=== PATIENT | female | born 1985 | race Caucasian/White ===

== ENCOUNTER 2016-07-21 13:04 | Emergency (ER) | payer OTHER ==
[2016-07-21] MEDS ORDERED: HYDROcodone/APAP 5-325MG 1 EACH TAB PO STA (13:51)
--- NOTE | 2016-07-21 13:57 | ED ---
ENT HPI - General Chief complaint: Dental/Oral Stated complaint: Dental pain Time Seen by Provider: 07/21/16 13:30 Source: patient Mode of arrival: ambulatory Limitations: no limitations - History of Present Illness Initial comments: Patient is a 31-year-old white female presenting to the emergency department with complaints of toothache to her upper right molar with pain radiating into her upper and lower jaw. Patient states she has a history of a broken tooth but over the last 2 days she started having significant pain unrelieved with tramadol and Motrin. Patient currently rates pain 8 out of 10, described as "somebody poking me with a knife." Patient states she just received insurance and is planning to see Dr. Cortes as her new dentist. Patient complains of occasional chills and nausea without vomiting. Patient denies fevers, trismus, difficulty swallowing, shortness of breath, chest pain, or abdominal pain. Patient denies any other symptoms. Patient denies antibiotic use in last 30 days. MD complaint: tooth pain Onset/Timin -: days(s) Location: tooth # (2) Severity: severe Severity scale (1-10): 8 Quality: sharp, other (Feels like somebody is poking her with a knife) Consistency: constant Improves with: none Worsens with: none Context- Dental: poor dental care, other (Missing teeth, poor dental hygiene) Associated Symptoms: gum swelling - Related Data Home Medications Medication Instructions Recorded Confirmed Gabapentin [Neurontin] 100 mg PO HS 07/21/16 07/21/16 Ibuprofen [Motrin] 600 mg PO Q6HR PRN 07/21/16 07/21/16 traMADol HCL [Ultram] 50 mg PO Q6HR PRN 07/21/16 07/21/16 Previous Rx's Medication Instructions Recorded HYDROcodone/APAP 5-325MG [[place] 1 tab PO Q4HR PRN #12 tab 07/21/16 5-325] Penicillin V Potassium [Pen Vee K] 500 mg PO QID #28 tab 07/21/16 Allergies Allergy/AdvReac Type Severity Reaction Status Date / Time No Known Allergies Allergy Verified 07/21/16 13:55 Review of Systems ROS Statement: Those systems with pertinent positive or pertinent negative responses have been documented in the HPI. ROS Other: All systems not noted in ROS Statement are negative. Past Medical History Past Medical History: Asthma, GERD/Reflux Additional Past Medical History / Comment(s): HERNIATED DISCS, BACK PAIN, POLYCYSTIC OVARY SYNDROME, MIGRAINES History of Any Multi-Drug Resistant Organisms: None Reported Past Surgical History: No Surgical Hx Reported Additional Past Surgical History / Comment(s): COLD KNIFE CONIZATION, [facility] Past Anesthesia/Blood Transfusion Reactions: Motion Sickness Additional Past Anesthesia/Blood Transfusion Reaction / Comment(s): HAS NEVER RECEIVED ANESTHESIA. Past Psychological History: Anxiety, Depression Smoking Status: Never smoker Past Alcohol Use History: None Reported Past Drug Use History: None Reported - Past Family History Father Family Medical History: Unable to Obtain Additional Family Medical History / Comment(s): PT WAS ADOPTED Mother Family Medical History: Unable to Obtain Additional Family Medical History / Comment(s): ADOPTED General Exam Limitations: no limitations General appearance: alert, anxious, other Head exam: Present: atraumatic, normocephalic, normal inspection Eye exam: Present: normal appearance, PERRL. Absent: scleral icterus, conjunctival injection, nystagmus, periorbital swelling, periorbital tenderness ENT exam: Present: mucous membranes moist, TM's normal bilaterally, normal external ear exam Expanded Ear exam: Present: normal external inspection Mouth exam: Present: normal external inspection, tongue normal. Absent: drooling, trismus Teeth exam: Present: fractured tooth # (2), dental tenderness # (2), gingival enlargement Throat exam: normal inspection. negative: tonsillar erythema, tonsillomegaly, tonsillar exudate, R peritonsillar mass, L peritonsillar mass Neck exam: Present: normal inspection, full ROM. Absent: tenderness, lymphadenopathy Respiratory exam: Present: normal lung sounds bilaterally. Absent: respiratory distress, wheezes, rales, rhonchi, stridor Cardiovascular Exam: Present: regular rate, normal rhythm, normal heart sounds GI/Abdominal exam: Present: soft, normal bowel sounds. Absent: tenderness Extremities exam: Present: normal inspection, full ROM, normal capillary refill. Absent: tenderness Neurological exam: Present: alert, oriented X3, normal gait, other (No focal deficits noted) Psychiatric exam: Present: normal affect, normal mood Skin exam: Present: warm, dry, intact, normal color Course Vital Signs 07/21/16 13:19 Temperature 98.0 F Pulse Rate 70 Respiratory 20 Rate Blood Pressure 129/82 O2 Sat by Pulse 99 Oximetry Medical Decision Making - Medical Decision Making Dental pain to tooth #2 with adjacent erythema. No obvious abscess noted. Patient prescribed antibiotics and short course opiates. Patient instructed to follow-up with dentist for further treatment. Patient agrees with treatment plan. Discharge instructions and return parameters reviewed. Disposition Clinical Impression: Toothache, Fracture of tooth Disposition: HOME SELF-CARE Condition: Good Instructions: Toothache (ED) Additional Instructions: Finish antibiotic as prescribed. Continue Motrin and Vicodin for pain as needed. Apply warm compresses for comfort. Follow-up with dentist. Please return to the emergency department if symptoms do not improve or get worse. Prescriptions: HYDROcodone/APAP 5-325MG [[place] 5-325] 1 tab PO Q4HR PRN #12 tab PRN Reason: Pain Penicillin V Potassium [Pen Vee K] 500 mg PO QID #28 tab Referrals: Moreno Contreras III, MD [Primary Care Provider] - 1-2 days Time of Disposition: 13:56
[2016-07-21 15:34] VITALS: BP 229/89; PULSE 63; RESP 15; TEMP 97.6
== END 2016-07-21 15:35 | disposition home or self-care (01) ==
LOC: EC 13:04
DX: S02.5XXA Fracture of tooth (traumatic), initial encounter for closed fracture (principal); R11.0 Nausea; R68.83 Chills (without fever); Z79.899 Other long term (current) drug therapy
CPT/HCPCS: 99282

== ENCOUNTER 2016-08-03 14:09 | Emergency (ER) | payer OTHER ==
[2016-08-03] MEDS ORDERED: SODIUM CHLORIDE 0.9% 1,000 ML IV STA (14:25)
--- NOTE | 2016-08-03 14:27 | ED ---
Abdominal Pain HPI - General Chief Complaint: Abdominal Pain Stated Complaint: Abd Pain Time Seen by Provider: 08/03/16 14:21 Source: patient, RN notes reviewed Mode of arrival: ambulatory Limitations: no limitations - History of Present Illness Initial Comments: 31-year-old female presents to the emergency room chief complaint of right upper quadrant abdominal pain. Patient states that wraps around her whole upper quadrant into the rib cage. Patient states that he'll shoot up the back. The chest. Patient states there is no shortness of breath with it. Patient states she's had off-and-on for the last few weeks but worse today. Patient states stabbing type pain. Patient denies any nausea vomiting fever or chills with it. Patient had a cough cold runny nose. Patient states that she does not know stimulation. Patient states she was concerned due to the continued pain so she thought that she should be reevaluated. Patient denies any recent fever, chills, shortness of breath, chest pain, back pain,nausea vomiting, numbness or tingling, dysuria or hematuria, constipation or diarrhea, headaches or visual changes, or any other current symptoms. - Related Data Home Medications Medication Instructions Recorded Confirmed Albuterol Sulfate [Proair Hfa] 2 puff INHALATION RT-QID PRN 08/03/16 08/03/16 Multivitamins, Thera [Multivitamin 1 tab PO DAILY 08/03/16 08/03/16 (formulary)] Previous Rx's Medication Instructions Recorded HYDROcodone/APAP 5-325MG [[place] 1 tab PO Q4HR PRN #12 tab 07/21/16 5-325] Allergies Allergy/AdvReac Type Severity Reaction Status Date / Time No Known Allergies Allergy Verified 08/03/16 15:00 Review of Systems ROS Statement: Those systems with pertinent positive or pertinent negative responses have been documented in the HPI. ROS Other: All systems not noted in ROS Statement are negative. Past Medical History Past Medical History: Asthma, GERD/Reflux Additional Past Medical History / Comment(s): HERNIATED DISCS, BACK PAIN, POLYCYSTIC OVARY SYNDROME, MIGRAINES History of Any Multi-Drug Resistant Organisms: None Reported Past Surgical History: No Surgical Hx Reported Additional Past Surgical History / Comment(s): COLD KNIFE CONIZATION, [facility] Past Anesthesia/Blood Transfusion Reactions: Motion Sickness Additional Past Anesthesia/Blood Transfusion Reaction / Comment(s): HAS NEVER RECEIVED ANESTHESIA. Past Psychological History: Anxiety, Depression Smoking Status: Never smoker Past Alcohol Use History: None Reported Past Drug Use History: None Reported - Past Family History Father Family Medical History: Unable to Obtain Additional Family Medical History / Comment(s): PT WAS ADOPTED Mother Family Medical History: Unable to Obtain Additional Family Medical History / Comment(s): ADOPTED General Exam - General Exam Comments Initial Comments: General: The patient is awake and alert, in no distress, and does not appear acutely ill. Eye: Pupils are equal, round and reactive to light, extra-ocular movements are intact; there is normal conjunctiva bilaterally. No signs of icterus. Ears, nose, mouth and throat: There are moist mucous membranes and no oral lesions. Neck: The neck is supple, there is no tenderness. Cardiovascular: There is a regular rate and rhythm. No murmur, rub or gallop is appreciated. Respiratory: Lungs are clear to auscultation, respirations are non-labored, breath sounds are equal. No wheezes, stridor, rales, or rhonchi. Gastrointestinal: Soft, non-distended, right upper quadrant tenderness of the abdomen without masses or organomegaly noted. There is no rebound or guarding present. No CVA tenderness. Bowel sounds are unremarkable. Back: There is no tenderness to palpation in the midline. There is no obvious deformity. No rashes noted. Musculoskeletal: Normal ROM, no tenderness, There is no pedal edema. There is no calf tenderness or swelling. Sensation intact. Pulses equal bilaterally 2+. Neurological: CN II-XII intact, There are no obvious motor or sensory deficits. Coordination appears grossly intact. Speech is normal. Skin: Skin is warm and dry and no rashes or lesions are noted. Psychiatric: Cooperative, appropriate mood & affect, normal judgment. Limitations: no limitations Course Vital Signs 08/03/16 14:16 Temperature 97.8 F Pulse Rate 101 H Respiratory 18 Rate Blood Pressure 136/78 O2 Sat by Pulse 100 Oximetry Medical Decision Making - Medical Decision Making 31-year-old female presents emergency Department chief complaint of abdominal pain. At this time patient's ultrasound and x-ray reviewed and negative. Patient's EKG was reviewed as well. At this time we did discuss different etiologies for the pain. This time patient is perk negative with a ventricular rate of 78 on EKG. At this time we discussed close follow-up with her doctor. We did discuss return parameters. Patient is pain-free this time and all the questions have been answered. She will be discharged. - Lab Data Result diagrams: 08/03/16 14:47 08/03/16 14:47 Lab Results 08/03/16 08/03/16 08/03/16 Range/Units 14:47 14:47 14:47 WBC 9.2 (3.8-10.6) k/uL RBC 4.83 (3.80-5.40) m/uL Hgb 14.5 (11.4-16.0) gm/dL Hct 43.7 (34.0-46.0) % MCV 90.4 (80.0-100.0) fL MCH 29.9 (25.0-35.0) pg MCHC 33.1 (31.0-37.0) g/dL RDW 12.7 (11.5-15.5) % Plt Count 327 (150-450) k/uL Neutrophils % 58 % Lymphocytes % 30 % Monocytes % 5 % Eosinophils % 3 % Basophils % 1 % Neutrophils # 5.4 (1.3-7.7) k/uL Lymphocytes # 2.8 (1.0-4.8) k/uL Monocytes # 0.5 (0-1.0) k/uL Eosinophils # 0.3 (0-0.7) k/uL Basophils # 0.1 (0-0.2) k/uL Sodium 140 (137-145) mmol/L Potassium 4.0 (3.5-5.1) mmol/L Chloride 103 (98-107) mmol/L Carbon Dioxide 28 (22-30) mmol/L Anion Gap 9 mmol/L BUN 10 (7-17) mg/dL Creatinine 0.93 (0.52-1.04) mg/dL Est GFR (MDRD) Af Amer >60 (>60 ml/min/1.73 sqM) Est GFR (MDRD) Non-Af >60 (>60 ml/min/1.73 sqM) Glucose 85 (74-99) mg/dL Calcium 9.8 (8.4-10.2) mg/dL Total Bilirubin 0.6 (0.2-1.3) mg/dL AST 25 (14-36) U/L ALT 30 (9-52) U/L Alkaline Phosphatase 82 (38-126) U/L Troponin I <0.012 (0.000-0.034) ng/mL Total Protein 7.7 (6.3-8.2) g/dL Albumin 4.3 (3.5-5.0) g/dL Amylase 76 (30-110) U/L Lipase 93 (23-300) U/L Urine Color Urine Appearance (Clear) Urine pH (5.0-8.0) Ur Specific [place] (1.001-1.035) Urine Protein (Negative) Urine Glucose (UA) (Negative) Urine Ketones (Negative) Urine Blood (Negative) Urine Nitrite (Negative) Urine Bilirubin (Negative) Urine Urobilinogen (<2.0) mg/dL Ur Leukocyte Esterase (Negative) Urine WBC (0-5) /hpf Ur Squamous Epith Cells (0-4) /hpf Urine Bacteria (None) /hpf Urine Mucus (None) /hpf Urine HCG, Qual (Not Detectd) 08/03/16 08/03/16 Range/Units 14:47 14:47 WBC (3.8-10.6) k/uL RBC (3.80-5.40) m/uL Hgb (11.4-16.0) gm/dL Hct (34.0-46.0) % MCV (80.0-100.0) fL MCH (25.0-35.0) pg MCHC (31.0-37.0) g/dL RDW (11.5-15.5) % Plt Count (150-450) k/uL Neutrophils % % Lymphocytes % % Monocytes % % Eosinophils % % Basophils % % Neutrophils # (1.3-7.7) k/uL Lymphocytes # (1.0-4.8) k/uL Monocytes # (0-1.0) k/uL Eosinophils # (0-0.7) k/uL Basophils # (0-0.2) k/uL Sodium (137-145) mmol/L Potassium (3.5-5.1) mmol/L Chloride (98-107) mmol/L Carbon Dioxide (22-30) mmol/L Anion Gap mmol/L BUN (7-17) mg/dL Creatinine (0.52-1.04) mg/dL Est GFR (MDRD) Af Amer (>60 ml/min/1.73 sqM) Est GFR (MDRD) Non-Af (>60 ml/min/1.73 sqM) Glucose (74-99) mg/dL Calcium (8.4-10.2) mg/dL Total Bilirubin (0.2-1.3) mg/dL AST (14-36) U/L ALT (9-52) U/L Alkaline Phosphatase (38-126) U/L Troponin I (0.000-0.034) ng/mL Total Protein (6.3-8.2) g/dL Albumin (3.5-5.0) g/dL Amylase (30-110) U/L Lipase (23-300) U/L Urine Color Yellow Urine Appearance Cloudy H (Clear) Urine pH 8.0 (5.0-8.0) Ur Specific [place] 1.018 (1.001-1.035) Urine Protein Negative (Negative) Urine Glucose (UA) Negative (Negative) Urine Ketones Negative (Negative) Urine Blood Negative (Negative) Urine Nitrite Negative (Negative) Urine Bilirubin Negative (Negative) Urine Urobilinogen <2.0 (<2.0) mg/dL Ur Leukocyte Esterase Negative (Negative) Urine WBC 3 (0-5) /hpf Ur Squamous Epith Cells 7 H (0-4) /hpf Urine Bacteria Rare H (None) /hpf Urine Mucus Rare H (None) /hpf Urine HCG, Qual Not Detected (Not Detectd) - EKG Data -: EKG Interpreted by 08/03/16 16:05 normal sinus rhythm with sinus arrhythmia 78 bpm, normal axis, no atopy, no S-T depressions or elevations, - Radiology Data Radiology results: report reviewed, image reviewed Disposition Clinical Impression: Right upper quadrant abdominal pain Disposition: HOME SELF-CARE Condition: Stable Instructions: Abdominal Pain (ED) Additional Instructions: Please use medication as discussed. Please follow up with family doctor if symptoms have not improved over the next two days. Please return to the emergency room if your symptoms increase or worsen or for any other concerns. Referrals: Moreno Contreras III, MD [Primary Care Provider] - 1-2 days Time of Disposition: 16:13
[2016-08-03 15:10] LABS: Appearance,Urine Cloudy (Clear); Bacteria,Urine Rare /hpf; Bilirubin,Urine Negative (Negative); Glucose,Urine (UA) Negative (Negative); Ketones,Urine Negative (Negative); Leukocyte Esterase,Urine Negative (Negative); Mucus,Urine Rare /hpf; Nitrite,Urine Negative (Negative); Particle Count 9017; Protein,Urine Negative (Negative); Specific Gravity,Urine 1.018 (1.001-1.035); Squamous Epithelial Cell,Urine 7 /hpf (0-4); UA Billing (MACRO vs. MICRO) MICRO; Urobilinogen,Urine <2.0 mg/dL (<2.0); WBC,Urine 3 /hpf (0-5)
[2016-08-03 15:11] LABS: Basophils # (A) 0.1 k/uL (0-0.2); Basophils % (A) 1 %; CH 29.9; CHCM 33.2; Eosinophils # (A) 0.3 k/uL (0-0.7); Eosinophils % (A) 3 %; HCT 43.7 % (34.0-46.0); HDW 2.46; HGB 14.5 gm/dL (11.4-16.0); Luc # (Auto) 0.25; Luc % (Auto) 3; Lymphocytes # (A) 2.8 k/uL (1.0-4.8); Lymphocytes % (A) 30 %; MCH 29.9 pg (25.0-35.0); MCHC 33.1 g/dL (31.0-37.0); MCV 90.4 fL (80.0-100.0); Mean Platelet Volume 7.2; Monocytes # (A) 0.5 k/uL (0-1.0); Monocytes % (A) 5 %; Neutrophils # (A) 5.4 k/uL (1.3-7.7); Neutrophils % (A) 58 %; RBC 4.83 m/uL (3.80-5.40); RDW 12.7 % (11.5-15.5); WBC 9.2 k/uL (3.8-10.6); WBC (Perox) 9.31
--- NOTE | 2016-08-03 15:36 | US ---
EXAMINATION TYPE: US gallbladder DATE OF EXAM: 08/03/2016 3:27 PM COMPARISON: NONE CLINICAL HISTORY: 31-year-old female Pain. RUQ TECHNIQUE: Multiple sonographic images of the right upper quadrant were obtained. FINDINGS: Marketing Communication Manager notes: ER patient that ate two hours prior Liver Length: 12.3 cm Gallbladder Wall: 0.2 cm CBD: 0.2 cm Right Kidney: 10.6 x 4.9 x 4.9 cm Pancreas: Suboptimal visualization secondary to shadowing from bowel gas Liver: There is increased echogenicity but otherwise no focal lesion seen. Gallbladder: No abnormal gallbladder distention, wall thickening, pericholecystic fluid, or shadowin g calculi. Evidence for sonographic Mittal's sign: Yes CBD: wnl Right Kidney: No hydronephrosis. Limited visualization of lower pole due to bowel gas IMPRESSION: 1. Positive sonographic Mittal's sign though without evidence for cholelithiasis or acute cholecystit is. This may reflect referred pain. If further imaging evaluation of the gallbladder is desired, cons ider HIDA scan with ejection fraction. 2. Increased echogenicity of the liver suggesting some degree of fatty infiltration.
[2016-08-03 15:45] LABS: ALT 30 U/L (9-52); AST 25 U/L (14-36); Alkaline Phosphatase 82 U/L (38-126); Amylase 76 U/L (30-110); Anion Gap 9 mmol/L; Blood Urea Nitrogen 10 mg/dL (7-17); Calcium 9.8 mg/dL (8.4-10.2); Carbon Dioxide 28 mmol/L (22-30); Chloride 103 mmol/L (98-107); Glucose 85 mg/dL (74-99); Non-African American GFR(MDRD) >60 (>60 ml/min/1.73 sqM); Sodium 140 mmol/L (137-145); Total Bilirubin 0.6 mg/dL (0.2-1.3); Total Protein 7.7 g/dL (6.3-8.2)
--- NOTE | 2016-08-03 16:30 | XR ---
EXAMINATION TYPE: XR chest 2V DATE OF EXAM: 08/03/2016 3:48 PM COMPARISON: None HISTORY: 31-year-old female with cough TECHNIQUE: PA and lateral views FINDINGS: The cardiomediastinal silhouette, aorta, and pulmonary vasculature are within normal limits. Lungs an d pleural spaces are clear. IMPRESSION: No acute cardiopulmonary process.
[2016-08-03 16:51] VITALS: BP 118/65; PULSE 87; RESP 16; TEMP 98.4
== END 2016-08-03 16:45 | disposition home or self-care (01) ==
LOC: EC 14:09
DX: R10.11 Right upper quadrant pain (principal); R05 Cough; R09.89 Other specified symptoms and signs involving the circulatory and respiratory systems; Z87.42 Personal history of other diseases of the female genital tract; Z79.899 Other long term (current) drug therapy
CPT/HCPCS: 36415; 71020; 76705; 80053; 81001; 81025; 82150; 83690; 84484; 85025; 93005; 96360; 99284

== ENCOUNTER → 2016-08-14 | Outpatient (CLI) | payer OTHER ==
--- NOTE | 2016-08-15 08:27 | US ---
EXAMINATION TYPE: US transvaginal DATE OF EXAM: 08/14/2016 4:23 PM COMPARISON: US on PACS CLINICAL HISTORY: R10.2 PELVIC AND PERINEAL PAIN. Patient stated had pelvic pain with gynecological e xam.History of PCOS; ; irregular menses. TECHNIQUE: Transvaginal (TV) Date of LMP: 05/12/2016 EXAM MEASUREMENTS: Uterus: 5.4 x 4.1 x 2.6cm Endometrial Stripe: 0.4cm Right Ovary: 3.5 x 3.5 x 2.9cm Left Ovary: 3.3 x 2.6 x 1.9cm 1. Uterus: Retroverted Multiple Nabothian cysts in CX with largest = 0.5 x 0.4 x 0.4cm. 2. Endometrium: unable to correlate thickness with April LMP 3. Right Ovary: multiple follicles throughout ovary with largest as possible septated cyst (2.3 x 1. 8 x 1.9cm) vs. cluster of cysts 4. Left Ovary: multiple follicles throughout ovary with largest follicle = 0.6 x 0.7 x 0.8cm. Spectral, color and waveform Doppler imaging shows good arterial and venous flow within the ovaries ; there is no evidence for ovarian torsion. 5. Bilateral Adnexa: wnl 6. Posterior cul-de-sac: very minimal fluid area in posterior CDS IMPRESSION: 1. Nabothian cysts. 2. Complex cyst right ovary, follow-up in 6 weeks following the next normal menstrual period is recom mended. 3. Free fluid within the cul-de-sac.
== END | disposition home or self-care (01) ==
LOC: RADUSWWP 15:46
PROVIDERS: ATTEND Family Medicine
DX: N88.8 Other specified noninflammatory disorders of cervix uteri (principal); N83.201 Unspecified ovarian cyst, right side
CPT/HCPCS: 76830

== ENCOUNTER 2016-10-10 12:32 | Emergency (ER) | payer OTHER ==
[2016-10-10 13:12] VITALS: BP 115/74; PULSE 80; RESP 20; TEMP 97.6
--- NOTE | 2016-10-10 14:28 | XR ---
Lumbosacral spine HISTORY: Pain 5 views of the lumbosacral spine There may be a slight spinal curvature. No spondylolysis or spondylolisthesis. Loss of disc height pr esent L5-S1, there is likely associated vacuum phenomenon. There is associated spondylosis. IMPRESSION: Degenerative disc disease L5-S1, consider MRI lumbar spine.
[2016-10-10] MEDS: CYCLOBENZAPRINE 10 MG TAB PO STA (14:34)
[2016-10-10] MEDS: HYDROcodone/APAP 5-325MG 1 EACH TAB PO STA (14:34)
--- NOTE | 2016-10-10 14:42 | ED ---
Back Pain HPI - General Chief Complaint: Back Pain/Injury Stated Complaint: Back Pain Time Seen by Provider: 10/10/16 13:51 Source: patient, RN notes reviewed Limitations: no limitations - History of Present Illness Initial Comments: Patient a 31-year-old female presents to the emergency room for evaluation of low back pain. Patient states that she was at work, lifting up a heavy bucket and felt a pop in her lower back. Patient states she began having extreme pain afterwards. Patient states she immediately came here. Patient denies saddle anesthesia. Patient denies fecal or urinary incontinence. Patient denies paresthesias. Patient does states she has a history of low back pain. Patient states she does have a history of herniated disc. Patient denies any other injuries during incident. - Related Data Home Medications Medication Instructions Recorded Confirmed Albuterol Sulfate [Proair Hfa] 2 puff INHALATION RT-QID PRN 08/03/16 08/03/16 Multivitamins, Thera [Multivitamin 1 tab PO DAILY 08/03/16 08/03/16 (formulary)] Previous Rx's Medication Instructions Recorded HYDROcodone/APAP 5-325MG [[place] 1 tab PO Q4HR PRN #12 tab 07/21/16 5-325] Dicyclomine [Bentyl] 10 mg PO TID #20 capsule 08/03/16 Ondansetron Odt [Zofran ODT] 4 mg PO Q8HR PRN #20 tab 08/03/16 Cyclobenzaprine [Flexeril] 10 mg PO TID PRN #15 tablet 10/10/16 HYDROcodone/APAP 5-325MG [[place] 1 tab PO Q6HR PRN #12 tab 10/10/16 5-325] Naproxen [Naprosyn] 500 mg PO Q12HR PRN #20 tab 10/10/16 Allergies Allergy/AdvReac Type Severity Reaction Status Date / Time No Known Allergies Allergy Verified 10/10/16 13:12 Review of Systems ROS Statement: Those systems with pertinent positive or pertinent negative responses have been documented in the HPI. ROS Other: All systems not noted in ROS Statement are negative. Past Medical History Past Medical History: Asthma, GERD/Reflux Additional Past Medical History / Comment(s): HERNIATED DISCS, BACK PAIN, POLYCYSTIC OVARY SYNDROME, MIGRAINES History of Any Multi-Drug Resistant Organisms: None Reported Past Surgical History: No Surgical Hx Reported Additional Past Surgical History / Comment(s): COLD KNIFE CONIZATION, [facility] Past Anesthesia/Blood Transfusion Reactions: Motion Sickness Additional Past Anesthesia/Blood Transfusion Reaction / Comment(s): HAS NEVER RECEIVED ANESTHESIA. Past Psychological History: Anxiety, Depression Smoking Status: Never smoker Past Alcohol Use History: None Reported Past Drug Use History: None Reported - Past Family History Father Family Medical History: Unable to Obtain Additional Family Medical History / Comment(s): PT WAS ADOPTED Mother Family Medical History: Unable to Obtain Additional Family Medical History / Comment(s): ADOPTED General Exam - General Exam Comments Initial Comments: Sitting in exam room, no acute distress. Limitations: no limitations General appearance: alert, in no apparent distress Head exam: Present: atraumatic, normocephalic, normal inspection Eye exam: Present: normal appearance ENT exam: Present: normal exam Neck exam: Present: normal inspection Respiratory exam: Absent: respiratory distress Extremities exam: Present: normal inspection Back exam: Present: normal inspection, vertebral tenderness (Lumbosacral spine) Neurological exam: Present: alert, oriented X3, CN II-XII intact, normal gait Psychiatric exam: Present: normal affect, normal mood Skin exam: Present: warm, dry, intact, normal color. Absent: rash Course Vital Signs 10/10/16 13:10 Temperature 97.6 F Pulse Rate 80 Respiratory 20 Rate Blood Pressure 115/74 O2 Sat by Pulse 98 Oximetry Medical Decision Making - Medical Decision Making Patient is a 31-year-old female presents emergency room for evaluation of low back pain. Patient does state she has a history of herniated disc between L5 and S1. X-ray significant for degenerative disc disease at L5-S1. Patient given pain medications and advised to follow-up with primary care provider symptoms worsen. Patient states she understands everything that was discussed with her. Return parameters discussed. Case discussed with Dr. Myers. - Radiology Data Radiology results: report reviewed, image reviewed Disposition Clinical Impression: Low back pain Disposition: HOME SELF-CARE Condition: Good Instructions: Acute Low Back Pain (ED) Additional Instructions: Take medications as needed. Ice on and off for 10-15 minutes at a time. Please follow up with primary care provider for further evaluation and 24-48 hours. If any new symptom arises or symptoms worsen, return to ER as soon as possible. Prescriptions: HYDROcodone/APAP 5-325MG [[place] 5-325] 1 tab PO Q6HR PRN #12 tab PRN Reason: Pain Naproxen [Naprosyn] 500 mg PO Q12HR PRN #20 tab PRN Reason: Pain Cyclobenzaprine [Flexeril] 10 mg PO TID PRN #15 tablet PRN Reason: Pain Referrals: Moreno Contreras III, MD [Primary Care Provider] - 1-2 days Time of Disposition: 14:52
== END 2016-10-10 15:00 | disposition home or self-care (01) ==
LOC: EC 12:32
DX: M51.37 Other intervertebral disc degeneration, lumbosacral region (principal); Z79.899 Other long term (current) drug therapy; X50.0XXA Overexertion from strenuous movement or load, initial encounter; Y92.69 Other specified industrial and construction area as the place of occurrence of the external cause; Y93.89 Activity, other specified
CPT/HCPCS: 72110; 99283

== ENCOUNTER 2016-10-11 09:07 | Emergency (ER) | payer OTHER ==
[2016-10-11 09:15] VITALS: RESP 18; TEMP 98.3
--- NOTE | 2016-10-11 09:30 | ED ---
General Adult HPI - General Chief complaint: Fall Stated complaint: Fall-[facility] Time Seen by Provider: 10/11/16 09:22 Source: patient, RN notes reviewed Mode of arrival: EMS Limitations: physical limitation - History of Present Illness Initial comments: Patient 31-year-old female who presents emergency room today by EMS, with chief complaint of slip and fall occurred at work. She states there was some water in the ground from a drink. She states she slipped falling backwards felt a pop in her lower back and also her neck. She does admit she hit her head. She denies any loss conscious. Does admit that she was seen here yesterday for a back injury that occurred at work when she looked up a bucket. She states she felt a pop yesterday as well. Did have an x-ray which was negative at the time acute fracture or dislocation. Patient denies any other complaints or symptoms currently at this time. Patient denies any recent fever, chills, shortness of breath, chest pain, abdominal pain, nausea or vomiting, dysuria or hematuria, constipation or diarrhea, headaches or visual changes, or any other complaints. - Related Data Home Medications Medication Instructions Recorded Confirmed Albuterol Sulfate [Proair Hfa] 2 puff INHALATION RT-QID PRN 08/03/16 10/11/16 Multivitamins, Thera [Multivitamin 1 tab PO DAILY 08/03/16 10/11/16 (formulary)] Citalopram Hydrobromide [CeleXA] 20 mg PO HS 10/11/16 10/11/16 Gabapentin [Neurontin] 300 mg PO HS 10/11/16 10/11/16 Previous Rx's Medication Instructions Recorded Cyclobenzaprine [Flexeril] 10 mg PO TID PRN #15 tablet 10/10/16 HYDROcodone/APAP 5-325MG [[place] 1 tab PO Q6HR PRN #12 tab 10/10/16 5-325] Naproxen [Naprosyn] 500 mg PO Q12HR PRN #20 tab 10/10/16 Allergies Allergy/AdvReac Type Severity Reaction Status Date / Time No Known Allergies Allergy Verified 10/11/16 09:53 Review of Systems ROS Statement: Those systems with pertinent positive or pertinent negative responses have been documented in the HPI. ROS Other: All systems not noted in ROS Statement are negative. Past Medical History Past Medical History: Asthma, GERD/Reflux Additional Past Medical History / Comment(s): HERNIATED DISCS, BACK PAIN, POLYCYSTIC OVARY SYNDROME, MIGRAINES History of Any Multi-Drug Resistant Organisms: None Reported Past Surgical History: No Surgical Hx Reported Additional Past Surgical History / Comment(s): COLD KNIFE CONIZATION, [facility] Past Anesthesia/Blood Transfusion Reactions: Motion Sickness Additional Past Anesthesia/Blood Transfusion Reaction / Comment(s): HAS NEVER RECEIVED ANESTHESIA. Past Psychological History: Anxiety, Depression Smoking Status: Never smoker Past Alcohol Use History: None Reported Past Drug Use History: None Reported - Past Family History Father Family Medical History: Unable to Obtain Additional Family Medical History / Comment(s): PT WAS ADOPTED Mother Family Medical History: Unable to Obtain Additional Family Medical History / Comment(s): ADOPTED General Exam - General Exam Comments Initial Comments: General: The patient is awake and alert, in no distress, and does not appear acutely ill. She currently in cervical collar. Eye: Pupils are equal, round and reactive to light, extra-ocular movements are intact. No nystagmus. There is normal conjunctiva bilaterally. No signs of icterus. Ears, nose, mouth and throat: There are moist mucous membranes and no oral lesions. Neck: The neck is supple, there is no tenderness or JVD. Cardiovascular: There is a regular rate and rhythm. No murmur, rub or gallop is appreciated. Respiratory: Lungs are clear to auscultation, respirations are non-labored, breath sounds are equal. No wheezes, stridor, rales, or rhonchi. Gastrointestinal: Soft, non-distended, non-tender abdomen without masses or organomegaly noted. There is no rebound or guarding present. No CVA tenderness. Bowel sounds are unremarkable. Musculoskeletal: Patient in cervical collar from EMS. Patient has diffuse tenderness throughout the cervical spine. Diffuse tenderness throughout the thoracic or lumbar spine. There is no step-offs forms appreciated. There is no bruising or swelling over redness. Shows good range of motion and all areas. Strength 5/5. Sensation intact. Pulses equal bilaterally 2+. Neurological: A&O x 3. CN II-XII intact, There are no obvious motor or sensory deficits. Coordination appears grossly intact. Speech is normal. Skin: Skin is warm and dry and no rashes or lesions are noted. Psychiatric: Cooperative, appropriate mood & affect, normal judgment. Limitations: physical limitation Course Vital Signs 10/11/16 09:09 Temperature 98.3 F Pulse Rate 80 Respiratory 18 Rate Blood Pressure 122/79 O2 Sat by Pulse 100 Oximetry Medical Decision Making - Medical Decision Making Patient's x-rays negative for any acute abnormalities. Patient's CT of the head and neck negative. Results were discussed with the patient per she is currently sitting up comfortably in the stretcher. Does have medication that she was given yesterday. Advised to use his medications followed the family doctor for further evaluation possible MRI. Advised to return if any symptoms increase worsen or for any other concerns. Patient states understanding and is in agreement with the plan. Disposition Clinical Impression: Fall, Acute back pain, Cervical strain Disposition: HOME SELF-CARE Condition: Good Instructions: Back Pain (ED) Additional Instructions: Please use medication as discussed. Please follow-up with family doctor in the next 2 days. Please return to emergency room if the symptoms increase or worsen or for any other concerns. Referrals: Moreno Contreras III, MD [Primary Care Provider] - 1-2 days Time of Disposition: 11:03
--- NOTE | 2016-10-11 10:00 | CT ---
EXAMINATION TYPE: CT brain cspine wo con DATE OF EXAM: 10/11/2016 COMPARISON: 06/16/2009 HISTORY: Slip and Fall CT DLP: 1515.8 mGycm Automated exposure control for dose reduction was used. TECHNIQUE: CT scan of the head and cervical spine are performed without contrast. FINDINGS: There is no acute intracranial hemorrhage, mass effect, or midline shift identified. The ventricles and sulci are within normal limits in size. The globes are intact and the visualized sin uses are clear. Osteoma or calcified sebaceous cyst involving the right parietal region noted. Change s of chronic sinusitis noted. Cervical spine is visualized in its entirety from C1 through upper thoracic levels and demonstrates s atisfactory alignment without evidence of acute fracture or dislocation. Prevertebral soft tissue ap pears within normal limits. The C1-C2 articulation is unremarkable. Posterior spondylosis C5-C6. IMPRESSION: 1. There is no acute fracture or dislocation evident in the cervical spine. 2. Limited exam posterior fossa due to artifact no definite acute hemorrhage.
--- NOTE | 2016-10-11 10:46 | XR ---
EXAM TYPE: LUMBAR SPINE X RAY SERIES COMPARISON: 10/10/2016 HISTORY: Pain TECHNIQUE: 3 views are submitted. FINDINGS: Alignment is anatomic. The pedicles are intact. The transverse processes are intact. There is no s pondylolysis or spondylolisthesis. Disc space narrowing at L5-S1. IMPRESSION: 1. Disc space narrowing at L5-S1 appears stable. Foraminal encroachment suggested. MRI recommended..
--- NOTE | 2016-10-11 10:47 | XR ---
thoracic spine HISTORY: Trauma and pain 3 views of the thoracic spine Thoracic vertebral bodies show preserved height, alignment, and bone mineralization. Disc spaces are maintained. Slight spinal curvature impression: No acute fracture or subluxation
[2016-10-11 11:27] VITALS: BP 102/62; PULSE 92
== END 2016-10-11 11:25 | disposition home or self-care (01) ==
LOC: EC 09:07
DX: S16.1XXA Strain of muscle, fascia and tendon at neck level, initial encounter (principal); M54.5 Low back pain; F32.9 Major depressive disorder, single episode, unspecified; F41.9 Anxiety disorder, unspecified; Z79.899 Other long term (current) drug therapy; W01.0XXA Fall on same level from slipping, tripping and stumbling without subsequent striking against object, initial encounter; Y92.69 Other specified industrial and construction area as the place of occurrence of the external cause; Y99.0 Civilian activity done for income or pay
CPT/HCPCS: 70450; 72072; 72100; 72125; 99284

== ENCOUNTER 2016-11-21 23:41 | Emergency (ER) | payer OTHER ==
[2016-11-22] MEDS ORDERED: SODIUM CHLORIDE 0.9% 1,000 ML IV ONE (01:10)
[2016-11-22] MEDS ORDERED: ONDANSETRON 4 MG/2 ML VIAL IVP STA (01:11)
--- NOTE | 2016-11-22 01:14 | ED ---
General Adult HPI - General Source: patient, RN notes reviewed Mode of arrival: ambulatory Limitations: no limitations <Soledad Doherty - Last Filed: 11/22/16 04:15> <Bernard Gonzalez - Last Filed: 11/22/16 04:53> - General Chief complaint: GI Bleed Stated complaint: Abdominal Pain/Rectal Bleed Time Seen by Provider: 11/22/16 00:03 - History of Present Illness Initial comments: Patient is a 31-year-old female presents to the emergency room for evaluation. Patient states while at work today she had a bowel movement and noted bright red blood in her stool. Patient notes a few spots of bright red blood. Patient states this happened her about 6 years ago. Patient also states having lower abdominal cramping and mild diarrhea. Patient states has been having nausea but denies vomiting. Patient denies chest pain or shortness of breath. Patient's headache or dizziness. Patient denies melena. Patient has pain or burning during urination, trouble urinating or blood in urine. Patient states she has history of polycystic ovarian syndrome. Patient states she did not have a menstrual cycle this month. Patient denies history of hemorrhoids or rectal fissures. Patient denies rectal pain. (Soledad Doherty) - Related Data Home Medications Medication Instructions Recorded Confirmed Albuterol Sulfate [Proair Hfa] 2 puff INHALATION RT-QID PRN 08/03/16 10/11/16 Multivitamins, Thera [Multivitamin 1 tab PO DAILY 08/03/16 10/11/16 (formulary)] Citalopram Hydrobromide [CeleXA] 20 mg PO HS 10/11/16 10/11/16 Gabapentin [Neurontin] 300 mg PO HS 10/11/16 10/11/16 Previous Rx's Medication Instructions Recorded Cyclobenzaprine [Flexeril] 10 mg PO TID PRN #15 tablet 10/10/16 HYDROcodone/APAP 5-325MG [[place] 1 tab PO Q6HR PRN #12 tab 10/10/16 5-325] Naproxen [Naprosyn] 500 mg PO Q12HR PRN #20 tab 10/10/16 Pantoprazole [Protonix] 1 tab PO DAILY #30 tablet. 11/22/16 Allergies Allergy/AdvReac Type Severity Reaction Status Date / Time No Known Allergies Allergy Verified 11/21/16 23:54 Review of Systems ROS Other: All systems not noted in ROS Statement are negative. <Soledad Doherty - Last Filed: 11/22/16 04:15> ROS Other: All systems not noted in ROS Statement are negative. <Bernard Gonzalez - Last Filed: 11/22/16 04:53> ROS Statement: Those systems with pertinent positive or pertinent negative responses have been documented in the HPI. Past Medical History Past Medical History: Asthma, GERD/Reflux Additional Past Medical History / Comment(s): HERNIATED DISCS, BACK PAIN, POLYCYSTIC OVARY SYNDROME, MIGRAINES History of Any Multi-Drug Resistant Organisms: None Reported Past Surgical History: No Surgical Hx Reported Additional Past Surgical History / Comment(s): COLD KNIFE CONIZATION, [facility] Past Anesthesia/Blood Transfusion Reactions: Motion Sickness Additional Past Anesthesia/Blood Transfusion Reaction / Comment(s): HAS NEVER RECEIVED ANESTHESIA. Past Psychological History: Anxiety, Depression Smoking Status: Never smoker Past Alcohol Use History: None Reported Past Drug Use History: None Reported - Past Family History Father Family Medical History: Unable to Obtain Additional Family Medical History / Comment(s): PT WAS ADOPTED Mother Family Medical History: Unable to Obtain Additional Family Medical History / Comment(s): ADOPTED <Soledad Doherty - Last Filed: 11/22/16 04:15> General Exam Limitations: no limitations General appearance: alert, in no apparent distress Head exam: Present: atraumatic, normocephalic, normal inspection Eye exam: Present: normal appearance ENT exam: Present: normal exam Neck exam: Present: normal inspection Respiratory exam: Present: normal lung sounds bilaterally. Absent: respiratory distress Cardiovascular Exam: Present: regular rate, normal rhythm, normal heart sounds GI/Abdominal exam: Present: soft, tenderness (LLQ, LUQ), normal bowel sounds. Absent: distended, guarding, rebound, rigid Rectal exam: Present: normal inspection, normal rectal tone Extremities exam: Present: normal inspection Back exam: Present: normal inspection Neurological exam: Present: alert, oriented X3, CN II-XII intact, normal gait Psychiatric exam: Present: normal affect, normal mood Skin exam: Present: warm, dry, intact, normal color. Absent: rash <Soledad Doherty - Last Filed: 11/22/16 04:15> <Bernard Gonzalez - Last Filed: 11/22/16 04:53> - General Exam Comments Initial Comments: sitting in exam room, no acute distress. (Soledad Doherty) Medical Decision Making - Lab Data Result diagrams: 11/22/16 00:25 11/22/16 00:25 <Soledad Doherty - Last Filed: 11/22/16 04:15> - Lab Data Result diagrams: 11/22/16 00:25 11/22/16 00:25 - Radiology Data Radiology results: report reviewed (Computed tomography scan of the abdomen pelvis shows mildly thickened enhancing jejunal small bowel worrisome for enteritis/ileus.), image reviewed (Abdominal x-ray shows no acute process.) <Bernard Gonzalez - Last Filed: 11/22/16 04:53> - Medical Decision Making patient is a 31-year-old female presents to the emergency room for evaluation of rectal bleeding and abdominal pain. Stool occult positive. Patient complaining of left lower quadrant pain. CT results pending. Case discussed and Dr. Gonzalez at 4:15 AM. (Soledad Doherty) Patient reexamined and resting comfortably in bed. Mild epigastric tenderness to palpation. Patient states she only had one episode of blood. Patient states she did have similar episode around 6 years ago. Patient states otherwise she feels fine at this time and is comfortable for discharge. Patient is updated and need for follow-up and need for upper and lower endoscopy. Patient advised to return for worsening symptoms. (Bernard Gonzalez) - Lab Data Lab Results 11/22/16 11/22/16 11/22/16 Range/Units 00:25 00:25 00:25 WBC 13.1 H (3.8-10.6) k/uL RBC 4.84 (3.80-5.40) m/uL Hgb 14.1 (11.4-16.0) gm/dL Hct 43.1 (34.0-46.0) % MCV 89.1 (80.0-100.0) fL MCH 29.2 (25.0-35.0) pg MCHC 32.7 (31.0-37.0) g/dL RDW 13.7 (11.5-15.5) % Plt Count 345 (150-450) k/uL Neutrophils % 69 % Lymphocytes % 22 % Monocytes % 5 % Eosinophils % 2 % Basophils % 1 % Neutrophils # 9.1 H (1.3-7.7) k/uL Lymphocytes # 2.9 (1.0-4.8) k/uL Monocytes # 0.6 (0-1.0) k/uL Eosinophils # 0.3 (0-0.7) k/uL Basophils # 0.1 (0-0.2) k/uL PT 9.7 (9.0-12.0) sec INR 0.9 (<1.2) APTT 25.2 (22.0-30.0) sec Sodium 141 (137-145) mmol/L Potassium 4.6 (3.5-5.1) mmol/L Chloride 103 (98-107) mmol/L Carbon Dioxide 24 (22-30) mmol/L Anion Gap 14 mmol/L BUN 15 (7-17) mg/dL Creatinine 0.80 (0.52-1.04) mg/dL Est GFR (MDRD) Af Amer >60 (>60 ml/min/1.73 sqM) Est GFR (MDRD) Non-Af >60 (>60 ml/min/1.73 sqM) Glucose 91 (74-99) mg/dL Calcium 10.1 (8.4-10.2) mg/dL Magnesium 1.9 (1.6-2.3) mg/dL Total Bilirubin 0.6 (0.2-1.3) mg/dL AST 33 (14-36) U/L ALT 40 (9-52) U/L Alkaline Phosphatase 101 (38-126) U/L Total Protein 7.9 (6.3-8.2) g/dL Albumin 4.7 (3.5-5.0) g/dL Lipase 109 (23-300) U/L Urine Color Urine Appearance (Clear) Urine pH (5.0-8.0) Ur Specific [place] (1.001-1.035) Urine Protein (Negative) Urine Glucose (UA) (Negative) Urine Ketones (Negative) Urine Blood (Negative) Urine Nitrite (Negative) Urine Bilirubin (Negative) Urine Urobilinogen (<2.0) mg/dL Ur Leukocyte Esterase (Negative) Urine HCG, Qual (Not Detectd) Stool Occult Blood (Negative) 11/22/16 11/22/16 11/22/16 Range/Units 01:15 01:15 01:15 WBC (3.8-10.6) k/uL RBC (3.80-5.40) m/uL Hgb (11.4-16.0) gm/dL Hct (34.0-46.0) % MCV (80.0-100.0) fL MCH (25.0-35.0) pg MCHC (31.0-37.0) g/dL RDW (11.5-15.5) % Plt Count (150-450) k/uL Neutrophils % % Lymphocytes % % Monocytes % % Eosinophils % % Basophils % % Neutrophils # (1.3-7.7) k/uL Lymphocytes # (1.0-4.8) k/uL Monocytes # (0-1.0) k/uL Eosinophils # (0-0.7) k/uL Basophils # (0-0.2) k/uL PT (9.0-12.0) sec INR (<1.2) APTT (22.0-30.0) sec Sodium (137-145) mmol/L Potassium (3.5-5.1) mmol/L Chloride (98-107) mmol/L Carbon Dioxide (22-30) mmol/L Anion Gap mmol/L BUN (7-17) mg/dL Creatinine (0.52-1.04) mg/dL Est GFR (MDRD) Af Amer (>60 ml/min/1.73 sqM) Est GFR (MDRD) Non-Af (>60 ml/min/1.73 sqM) Glucose (74-99) mg/dL Calcium (8.4-10.2) mg/dL Magnesium (1.6-2.3) mg/dL Total Bilirubin (0.2-1.3) mg/dL AST (14-36) U/L ALT (9-52) U/L Alkaline Phosphatase (38-126) U/L Total Protein (6.3-8.2) g/dL Albumin (3.5-5.0) g/dL Lipase (23-300) U/L Urine Color Yellow Urine Appearance Clear (Clear) Urine pH 5.0 (5.0-8.0) Ur Specific [place] 1.021 (1.001-1.035) Urine Protein Negative (Negative) Urine Glucose (UA) Negative (Negative) Urine Ketones Negative (Negative) Urine Blood Negative (Negative) Urine Nitrite Negative (Negative) Urine Bilirubin Negative (Negative) Urine Urobilinogen <2.0 (<2.0) mg/dL Ur Leukocyte Esterase Negative (Negative) Urine HCG, Qual Not Detected (Not Detectd) Stool Occult Blood Positive H (Negative) Disposition <Soledad Doherty - Last Filed: 11/22/16 04:15> Time of Disposition: 04:53 <Bernard Gonzalez - Last Filed: 11/22/16 04:53> Clinical Impression: GI bleeding Disposition: HOME SELF-CARE Condition: Stable Instructions: Gastrointestinal Bleeding (ED) Additional Instructions: Please follow-up with your doctor in the next day or 2 for recheck. Please follow-up for upper and lower endoscopy. Return for abdominal pain, fevers, bleeding, worsening symptoms or other concerns. Hold naproxen. Prescriptions: Pantoprazole [Protonix] 1 tab PO DAILY #30 tablet.dr Referrals: Moreno Contreras III, MD [Primary Care Provider] - 1-2 days
[2016-11-22 01:53] LABS: Basophils # (A) 0.1 k/uL (0-0.2); Basophils % (A) 1 %; CH 29.7; CHCM 33.4; Eosinophils # (A) 0.3 k/uL (0-0.7); Eosinophils % (A) 2 %; HCT 43.1 % (34.0-46.0); HDW 2.41; HGB 14.1 gm/dL (11.4-16.0); Luc # (Auto) 0.23; Luc % (Auto) 2; Lymphocytes # (A) 2.9 k/uL (1.0-4.8); Lymphocytes % (A) 22 %; MCH 29.2 pg (25.0-35.0); MCHC 32.7 g/dL (31.0-37.0); MCV 89.1 fL (80.0-100.0); Mean Platelet Volume 8.3; Monocytes # (A) 0.6 k/uL (0-1.0); Monocytes % (A) 5 %; Neutrophils # (A) 9.1 k/uL (1.3-7.7); Neutrophils % (A) 69 %; RBC 4.84 m/uL (3.80-5.40); RDW 13.7 % (11.5-15.5); WBC 13.1 k/uL (3.8-10.6); WBC (Perox) 12.25
[2016-11-22 01:56] LABS: Appearance,Urine Clear (Clear); Bilirubin,Urine Negative (Negative); Glucose,Urine (UA) Negative (Negative); Ketones,Urine Negative (Negative); Leukocyte Esterase,Urine Negative (Negative); Nitrite,Urine Negative (Negative); Protein,Urine Negative (Negative); Specific Gravity,Urine 1.021 (1.001-1.035); UA Billing (MACRO vs. MICRO) CHEM; Urobilinogen,Urine <2.0 mg/dL (<2.0)
[2016-11-22 02:02] LABS: INR 0.9 (<1.2); Partial Thromboplastin Time 25.2 sec (22.0-30.0); Prothrombin Time 9.7 sec (9.0-12.0)
[2016-11-22 02:03] LABS: ALT 40 U/L (9-52); AST 33 U/L (14-36); Alkaline Phosphatase 101 U/L (38-126); Anion Gap 14 mmol/L; Blood Urea Nitrogen 15 mg/dL (7-17); Calcium 10.1 mg/dL (8.4-10.2); Carbon Dioxide 24 mmol/L (22-30); Chloride 103 mmol/L (98-107); Glucose 91 mg/dL (74-99); Magnesium 1.9 mg/dL (1.6-2.3); Non-African American GFR(MDRD) >60 (>60 ml/min/1.73 sqM); Potassium 4.6 mmol/L (3.5-5.1); Sodium 141 mmol/L (137-145); Total Bilirubin 0.6 mg/dL (0.2-1.3); Total Protein 7.9 g/dL (6.3-8.2)
--- NOTE | 2016-11-22 02:31 | XR ---
EXAM: XR Abdomen, 1 View CLINICAL HISTORY: Pt. c/o rectal bleeding and abdominal pain. Neg HCG TECHNIQUE: Frontal supine view of the abdomen/pelvis. COMPARISON: [facility] 06/20/14 FINDINGS: Gastrointestinal tract: Unremarkable. No dilation. Bones/joints: Unremarkable. IMPRESSION: Normal abdominal x-ray.
[2016-11-22] MEDS ORDERED: RX INFO: IV CONTRAST WAS GIVEN 1 EACH MISC MISCELLANE PRN (02:56)
[2016-11-22] MEDS ORDERED: MORPHINE SULFATE 4 MG/ML SYRINGE IVP STA (02:58)
--- NOTE | 2016-11-22 04:18 | CT ---
EXAM: CT Abdomen and Pelvis With Intravenous Contrast CLINICAL HISTORY: pt. c/o abdominal pain, diarrhea, bloody stool; Omni 300/100ML TECHNIQUE: Axial computed tomography images of the abdomen and pelvis with intravenous contrast. CTDI is 12.6 mGy and DLP is 952 mGy-cm. This CT exam was performed using one or more of the following dose reduction techniques: automated exposure control, adjustment of the mA and/or kV according to patient size, and/or use of iterative reconstruction technique. Coronal and sagittal reformatted images were created and reviewed. COMPARISON: No relevant prior studies available. FINDINGS: Lower thorax: No acute findings. ABDOMEN: Liver: Fatty enlarged liver. Gallbladder and bile ducts: Unremarkable. No calcified stones. No ductal dilation. Pancreas: Unremarkable. No mass. No ductal dilation. Spleen: Unremarkable. No splenomegaly. Adrenals: Unremarkable. No mass. Kidneys and ureters: Unremarkable. No solid mass. No hydronephrosis. Stomach and bowel: Fluid-filled mildly thickened enhancing jejunal small bowel worrisome for enteritis with ileus. Mild thickening of the colon likely due to underdistention. No bowel obstruction. No free air, free fluid, or abscess. Appendix: Normal appendix. PELVIS: Bladder: Unremarkable. No mass. Reproductive: Uterus and adnexa unremarkable. ABDOMEN and PELVIS: Intraperitoneal space: See above. Bones/joints: L5-S1 degenerative disc disease. No acute fracture. No dislocation. Soft tissues: Small fat-containing umbilical hernia. Vasculature: Unremarkable. No abdominal aortic aneurysm. Lymph nodes: Unremarkable. No enlarged lymph nodes. IMPRESSION: 1. Fluid-filled mildly thickened enhancing jejunal small bowel worrisome for enteritis with ileus. Mild thickening of the colon likely due to underdistention. No bowel obstruction. 2. Fatty enlarged liver. 3. Normal appendix.
[2016-11-22 04:59] VITALS: BP 106/56; PULSE 67; RESP 15; TEMP 97.4
== END 2016-11-22 04:58 | disposition home or self-care (01) ==
LOC: EC 23:41
DX: K92.2 Gastrointestinal hemorrhage, unspecified (principal); Z86.39 Personal history of other endocrine, nutritional and metabolic disease
CPT/HCPCS: 99285 ×2; 96374 ×2; 96375 ×2; 96361 ×5; 36415; 80053; 83690; 83735; 85025; 85610; 85730; 82272; 81003; 81025; 74000; 74177; J2270; J2405; Q9967

== ENCOUNTER 2016-12-13 09:00 | Day surgery (SDC) | payer OTHER ==
[2016-12-11 12:34] VITALS: BMI 33.8
[~2016-12-13 09:00] MED LIST: LACTATED RINGERS 1,000 ML IV SCH
[2016-12-13] MEDS ORDERED: LIDOCAINE 1% 20 ML VIAL (10MG/ML) FOR IV START INTRADERMA ONE (10:20)
[2016-12-13 10:29] VITALS: RESP 16; TEMP 96.8
[2016-12-13] MEDS ORDERED: LIDOCAINE 1% INJ 10MG/ML (20 ML MDV) ONE (10:58)
[2016-12-13] MEDS ORDERED: PROPOFOL 10 MG/ML 20 ML VIAL IV ONE (10:58)
--- NOTE | 2016-12-13 11:11 | P.PCN ---
Date of Procedure: 12/13/16 Preoperative Diagnosis: Postoperative Diagnosis: Procedure(s) Performed: Brief history: Patient is a pleasant 31-year-old white female, scheduled for an elective upper endoscopy as well as colonoscopy as a part of evaluation of atypical chest pain , change in bowel habits and chronic constipation of several months duration. Procedure performed: Esophagogastroduodenoscopy with biopsy Colonoscopy Preoperative diagnosis: Atypical chest pain Change in bowel habits and chronic constipation Anesthesia: MAC Procedure: After informed consent was obtained from the patient was brought into the endoscopy unit and IV sedation was administered by anesthesia under continuous monitoring. Initially upper endoscopy was done. The Olympus GF 160 video endoscope was inserted inserted into the mouth and esophagus intubated without any difficulty and was gradually advanced into the stomach and duodenum and carefully examined. The bulb and second part of the duodenum appeared normal. The scope was then withdrawn into the stomach adequately insufflated with air and upon careful examination the antrum had mild gastritis and biopsies were done from this area. The body, cardia and fundus appeared normal. The scope was then withdrawn into the esophagus. The GE junction was located at 40 cm to the incisors. It appeared regular with no erythema erosions or ulcerations. Rest of the esophagus appeared normal. Patient tolerated the procedure well. At this time the patient continued to remain sedation. Initial digital rectal examination was normal. Olympus CF 160 video colonoscope was then inserted into the rectum and gradually advanced to the cecum without any difficulty. Careful examination was performed as the scope was gradually being withdrawn. The prep was excellent. The cecum, ascending colon, transverse colon, descending colon, sigmoid colon and rectum appeared normal. Retroflexion was performed in the rectum and no lesions were noted. Patient tolerated the procedure well. Impression: 1. Upper endoscopy revealed mild antral gastritis but no evidence of esophagitis or peptic ulcer disease. 2. Colonoscopy was essentially within normal limits with no evidence of colitis or colorectal neoplasia Recommendations: Findings of this examination were discussed with the patient as well as her family. She was advised to follow with the biopsy results. she will continue with her current medications and she'll be seen in office in 2-3 weeks Implants: Indications for Procedure: Operative Findings: Description of Procedure:
[2016-12-13 11:40] VITALS: BP 113/58; PULSE 88
== END 2016-12-13 12:15 | disposition home or self-care (01) ==
LOC: ORWHC2ENDO 09:00
PROVIDERS: ATTEND Internal Medicine Gastroenterology
DX: K29.50 Unspecified chronic gastritis without bleeding (principal); K59.09 Other constipation; R19.4 Change in bowel habit; Z88.0 Allergy status to penicillin
CPT/HCPCS: 81025; 88305; 88342; 45378; 43239; J2001; J2704

== ENCOUNTER 2016-12-17 13:59 | Emergency (ER) | payer OTHER ==
[2016-12-17] MEDS ORDERED: methylPREDNISolone SOD SUCCI 125 MG/2 ML VIAL IV STA (15:20)
[2016-12-17] MEDS ORDERED: FAMOTIDINE 20 MG/2 ML VIAL IV STA (15:20)
[2016-12-17] MEDS ORDERED: KETOROLAC 30 MG/ML 1 ML VIAL IVP STA (15:33)
[2016-12-17] MEDS ORDERED: SODIUM CHLORIDE 0.9% 1,000 ML IV ONE (15:33)
[2016-12-17 15:48] LABS: Basophils # (A) 0.1 k/uL (0-0.2); Basophils % (A) 1 %; CH 30.4; CHCM 33.8; Eosinophils # (A) 0.3 k/uL (0-0.7); Eosinophils % (A) 4 %; HCT 40.6 % (34.0-46.0); HDW 2.44; HGB 13.5 gm/dL (11.4-16.0); Luc # (Auto) 0.22; Luc % (Auto) 3; Lymphocytes # (A) 2.3 k/uL (1.0-4.8); Lymphocytes % (A) 28 %; MCHC 33.3 g/dL (31.0-37.0); MCV 90.3 fL (80.0-100.0); Mean Platelet Volume 7.9; Monocytes # (A) 0.5 k/uL (0-1.0); Monocytes % (A) 6 %; Neutrophils # (A) 4.9 k/uL (1.3-7.7); Neutrophils % (A) 59 %; RBC 4.49 m/uL (3.80-5.40); WBC 8.2 k/uL (3.8-10.6); WBC (Perox) 7.97
[2016-12-17 15:55] LABS: Partial Thromboplastin Time 25.5 sec (22.0-30.0); Prothrombin Time 10.2 sec (9.0-12.0)
[2016-12-17 15:58] LABS: ALT 34 U/L (9-52); AST 25 U/L (14-36); Alkaline Phosphatase 80 U/L (38-126); Anion Gap 12 mmol/L; Blood Urea Nitrogen 10 mg/dL (7-17); Calcium 9.7 mg/dL (8.4-10.2); Carbon Dioxide 25 mmol/L (22-30); Chloride 105 mmol/L (98-107); Glucose 101 mg/dL (74-99); Non-African American GFR(MDRD) >60 (>60 ml/min/1.73 sqM); Potassium 3.9 mmol/L (3.5-5.1); Sodium 142 mmol/L (137-145); Total Bilirubin 0.9 mg/dL (0.2-1.3); Total Protein 7.4 g/dL (6.3-8.2)
[2016-12-17 16:02] LABS: Appearance,Urine Clear (Clear); Bilirubin,Urine Negative (Negative); Glucose,Urine (UA) Negative (Negative); Ketones,Urine Negative (Negative); Leukocyte Esterase,Urine Negative (Negative); Nitrite,Urine Negative (Negative); Protein,Urine Negative (Negative); Specific Gravity,Urine 1.012 (1.001-1.035); UA Billing (MACRO vs. MICRO) CHEM; Urobilinogen,Urine <2.0 mg/dL (<2.0)
--- NOTE | 2016-12-17 16:03 | ED ---
Chest Pain HPI - General Chief Complaint: Chest Pain Stated Complaint: Chest Pain/SOB Time Seen by Provider: 12/17/16 15:10 Source: patient, family, RN notes reviewed, old records reviewed Mode of arrival: wheelchair - History of Present Illness Initial Comments: Is a 31-year-old female presents emergency Department chief complaint of 1 evening her shortness of breath, and chest pain for the past day. Patient reports that when she arrives to emergency Department chief is feeling like her throat was closing up. She denies any new exposures or causes for ALLERGIC reaction. She states that she has a history of asthma but this chest pain shortness of breath does not feel like her asthma. She states she's had no nausea or vomiting. Denies any coughing. - Related Data Home Medications Medication Instructions Recorded Confirmed Albuterol Sulfate [Proair Hfa] 2 puff INHALATION RT-QID PRN 08/03/16 12/17/16 Multivitamins, Thera [Multivitamin 1 tab PO DAILY 08/03/16 12/17/16 (formulary)] Cetirizine HCl [Zyrtec] 10 mg PO DAILY 12/17/16 12/17/16 Citalopram Hydrobromide [CeleXA] 40 mg PO DAILY 12/17/16 12/17/16 Montelukast [Singulair] 10 mg PO HS 12/17/16 12/17/16 Pantoprazole [Protonix] 40 mg PO DAILY 12/17/16 12/17/16 Triamcinolone 0.1% Ointment 1 applic TOPICAL BID PRN 12/17/16 12/17/16 [Kenalog 0.1% Ointment] Previous Rx's Medication Instructions Recorded Ibuprofen [Motrin] 600 mg PO Q8HR PRN #20 tab 12/17/16 methylPREDNISolone Dose Pack 4 mg PO DIRECTED #21 package 12/17/16 [Medrol Dose Pack] Allergies Allergy/AdvReac Type Severity Reaction Status Date / Time No Known Allergies Allergy Verified 12/17/16 16:19 Review of Systems ROS Statement: Those systems with pertinent positive or pertinent negative responses have been documented in the HPI. ROS Other: All systems not noted in ROS Statement are negative. EKG Findings - EKG Comments: EKG Findings:: Patient's EKG shows normal sinus rhythm. Nonspecific T-wave abnormality. Ventricular rate 64 bpm. NM interval 148 segs. Chemistries within the mouth. QT QTc is 420/433. No evidence of ST elevation. Past Medical History Past Medical History: Asthma, GERD/Reflux Additional Past Medical History / Comment(s): HERNIATED DISCS, BACK PAIN, POLYCYSTIC OVARY SYNDROME, MIGRAINES., SEEN IN ER 11/22/16 FOR ABDOMINAL PAIN AND BLOOD IN STOOL., TERMITE HELPER TOLD HER SHE HAD A "SMALL FLAP AT HER VENTRICLE" History of Any Multi-Drug Resistant Organisms: None Reported Past Surgical History: No Surgical Hx Reported Additional Past Surgical History / Comment(s): COLD KNIFE CONIZATION, [facility] Past Anesthesia/Blood Transfusion Reactions: No Reported Reaction, Motion Sickness Additional Past Anesthesia/Blood Transfusion Reaction / Comment(s): HAS NEVER RECEIVED ANESTHESIA. Past Psychological History: Anxiety, Depression Smoking Status: Never smoker Past Alcohol Use History: None Reported Past Drug Use History: None Reported - Past Family History Father Family Medical History: Unable to Obtain Additional Family Medical History / Comment(s): PT WAS ADOPTED Mother Family Medical History: Unable to Obtain Additional Family Medical History / Comment(s): ADOPTED General Exam - General Exam Comments Initial Comments: There is a 31-year-old female. No acute distress. General appearance: alert, in no apparent distress Head exam: Present: atraumatic, normocephalic, normal inspection Eye exam: Present: normal appearance, PERRL, EOMI. Absent: scleral icterus, conjunctival injection, periorbital swelling ENT exam: Present: normal exam, mucous membranes moist Neck exam: Present: normal inspection. Absent: tenderness, meningismus, lymphadenopathy Respiratory exam: Present: normal lung sounds bilaterally, other (Patient is tender to palpation over chest wall.). Absent: respiratory distress, wheezes, rales, rhonchi, stridor Cardiovascular Exam: Present: regular rate, normal rhythm, normal heart sounds. Absent: systolic murmur, diastolic murmur, rubs, gallop, clicks GI/Abdominal exam: Present: soft, normal bowel sounds. Absent: distended, tenderness, guarding, rebound, rigid Extremities exam: Present: normal inspection, full ROM, normal capillary refill. Absent: tenderness, pedal edema, joint swelling, calf tenderness Back exam: Present: normal inspection Neurological exam: Present: alert, oriented X3, CN II-XII intact Psychiatric exam: Present: normal affect, normal mood Skin exam: Present: warm, dry, intact, normal color. Absent: rash Course Vital Signs 12/17/16 14:13 Temperature 97.4 F L Pulse Rate 74 Respiratory 18 Rate Blood Pressure 104/72 O2 Sat by Pulse 100 Oximetry Disposition Clinical Impression: Costochondritis Disposition: HOME SELF-CARE Condition: Good Instructions: Costochondritis (ED) Additional Instructions: Patient's needs to take medication as prescribed. Follow-up with her primary care physician. Return to the emergency department if any alarming signs or symptoms occur. Prescriptions: Ibuprofen [Motrin] 600 mg PO Q8HR PRN #20 tab PRN Reason: Pain methylPREDNISolone Dose Pack [Medrol Dose Pack] 4 mg PO DIRECTED #21 package Referrals: Moreno Contreras III, MD [Primary Care Provider] - 1-2 days Time of Disposition: 16:45
[2016-12-17 16:14] LABS: Creatine Kinase 87 U/L (30-135)
--- NOTE | 2016-12-17 16:21 | XR ---
EXAMINATION TYPE: XR chest 2V DATE OF EXAM: 12/17/2016 COMPARISON: 08/03/2016 INDICATION: Chest pain TECHNIQUE: Frontal and lateral views of the chest are obtained. FINDINGS: The heart size is normal. The pulmonary vasculature is normal. The lungs are clear. IMPRESSION: 1. No acute pulmonary process.
[2016-12-17 16:25] LABS: Creatine Kinase MB 0.4 ng/mL (0.0-2.4); Troponin I <0.012 ng/mL (0.000-0.034)
[2016-12-17 17:05] VITALS: BP 101/61; PULSE 69; RESP 16; TEMP 97.3
== END 2016-12-17 17:05 | disposition home or self-care (01) ==
LOC: EC 13:59
DX: M94.0 Chondrocostal junction syndrome [Tietze] (principal); F41.9 Anxiety disorder, unspecified; F32.9 Major depressive disorder, single episode, unspecified; Z79.899 Other long term (current) drug therapy
CPT/HCPCS: 36415; 93005; 80053; 82550; 82553; 83735; 84484; 85025; 85610; 85730; 81003; 81025; 71020; 99285; 96374; 96375 ×2; 96361; J2930; J1885

== ENCOUNTER 2017-05-10 03:57 | Emergency (ER) | payer OTHER ==
[2017-05-10 04:04] VITALS: TEMP 97.8
[2017-05-10 04:52] LABS: Basophils % (A) 0 %; Eosinophils # (A) 0.4 k/uL (0-0.7); Eosinophils % (A) 4 %; HCT 41.1 % (34.0-46.0); HGB 13.6 gm/dL (11.4-16.0); Lymphocytes # (A) 2.1 k/uL (1.0-4.8); Lymphocytes % (A) 19 %; MCH 29.2 pg (25.0-35.0); MCHC 33.1 g/dL (31.0-37.0); MCV 88.4 fL (80.0-100.0); Mean Platelet Volume 7.1; Monocytes # (A) 0.6 k/uL (0-1.0); Monocytes % (A) 5 %; Neutrophils # (A) 7.9 k/uL (1.3-7.7); Neutrophils % (A) 70 %; Platelet Count 346 k/uL (150-450); RBC 4.65 m/uL (3.80-5.40); WBC 11.3 k/uL (3.8-10.6)
[2017-05-10 05:11] LABS: ALT 32 U/L (9-52); AST 22 U/L (14-36); Albumin 4.2 g/dL (3.5-5.0); Alkaline Phosphatase 87 U/L (38-126); Anion Gap 12 mmol/L; Blood Urea Nitrogen 14 mg/dL (7-17); Carbon Dioxide 25 mmol/L (22-30); Chloride 106 mmol/L (98-107); Glucose 100 mg/dL (74-99); Sodium 143 mmol/L (137-145); Total Bilirubin 0.4 mg/dL (0.2-1.3); Total Protein 7.2 g/dL (6.3-8.2)
[2017-05-10] MEDS ORDERED: DICYCLOMINE 20 MG TAB PO STA (05:19)
--- NOTE | 2017-05-10 05:58 | CT ---
EXAM: CT Abdomen and Pelvis Without Intravenous Contrast CLINICAL HISTORY: Reason: Pain TECHNIQUE: Axial computed tomography images of the abdomen and pelvis without intravenous contrast. CTDI is 10.7 mGy and DLP is 513.2 mGy-cm. This CT exam was performed using one or more of the following dose reduction techniques: automated exposure control, adjustment of the mA and/or kV according to patient size, and/or use of iterative reconstruction technique. COMPARISON: CT abdomen/pelvis dated November 22, 2016. FINDINGS: Lower thorax: No acute findings. ABDOMEN: Liver: Hepatic steatosis. Gallbladder and bile ducts: Unremarkable. No calcified stones. No ductal dilation. Pancreas: Unremarkable. No ductal dilation. Spleen: Unremarkable. No splenomegaly. Adrenals: Unremarkable. No mass. Kidneys and ureters: Unremarkable. No obstructing stones. No hydronephrosis. Stomach and bowel: Unremarkable. No obstruction. No mucosal thickening. Appendix: No findings to suggest acute appendicitis. PELVIS: Bladder: Unremarkable. No stones. Reproductive: Unremarkable as visualized. ABDOMEN and PELVIS: Intraperitoneal space: Unremarkable. No free air. No significant fluid collection. Bones/joints: Degenerative disc disease and facet arthrosis is seen at L5-S1. No acute fracture. No dislocation. Soft tissues: Unremarkable. Vasculature: Unremarkable. No abdominal aortic aneurysm. Lymph nodes: Unremarkable. No enlarged lymph nodes. IMPRESSION: No acute abnormality identified.
[2017-05-10 05:59] LABS: Erythrocyte Sedimentation Rate 16 mm/hr (0-20)
--- NOTE | 2017-05-10 06:41 | ED ---
GI Bleed HPI - General Chief complaint: GI Bleed Stated complaint: Female Time Seen by Provider: 05/10/17 04:06 Source: patient Mode of arrival: ambulatory Limitations: no limitations - History of Present Illness Initial comments: This patient is a 32-year-old woman who presents to be evaluated for abdominal pain and possible GI bleed. Patient states that her symptoms came on about 8 or 9 hours ago. She has had some diffuse abdominal cramping. She then noted what she thought were some streaks of blood when she had vomited. She also had some streaks of blood on the toilet paper last time she wiped. complaint: blood streaked emesis, blood on toilet paper -: hour(s) Quality: cramping Consistency: intermittent Improves with: none Worsens with: none Associated Symptoms: denies other symptoms - Related Data Home Medications Medication Instructions Recorded Confirmed Albuterol Sulfate [Proair Hfa] 2 puff INHALATION RT-QID PRN 08/03/16 05/10/17 Citalopram Hydrobromide [CeleXA] 40 mg PO DAILY 12/17/16 05/10/17 Previous Rx's Medication Instructions Recorded Pantoprazole [Protonix] 40 mg PO DAILY #7 tablet. 05/10/17 Allergies Allergy/AdvReac Type Severity Reaction Status Date / Time No Known Allergies Allergy Verified 12/17/16 16:19 Review of Systems ROS Statement: Those systems with pertinent positive or pertinent negative responses have been documented in the HPI. ROS Other: All systems not noted in ROS Statement are negative. Constitutional: Denies: fever, chills Respiratory: Denies: cough, dyspnea Cardiovascular: Denies: chest pain, palpitations Gastrointestinal: Reports: abdominal pain, nausea, vomiting, diarrhea, hematemesis, hematochezia. Denies: melena Genitourinary: Denies: dysuria, hematuria Musculoskeletal: Denies: back pain Skin: Denies: rash Neurological: Denies: headache, weakness, numbness Hematological/Lymphatic: Denies: easy bleeding Past Medical History Past Medical History: Asthma, GERD/Reflux Additional Past Medical History / Comment(s): HERNIATED DISCS, BACK PAIN, POLYCYSTIC OVARY SYNDROME, MIGRAINES., SEEN IN ER 11/22/16 FOR ABDOMINAL PAIN AND BLOOD IN STOOL., OPERATIONS PROCESSOR TOLD HER SHE HAD A "SMALL FLAP AT HER VENTRICLE" History of Any Multi-Drug Resistant Organisms: None Reported Past Surgical History: No Surgical Hx Reported Additional Past Surgical History / Comment(s): COLD KNIFE CONIZATION, [facility] Past Anesthesia/Blood Transfusion Reactions: No Reported Reaction, Motion Sickness Additional Past Anesthesia/Blood Transfusion Reaction / Comment(s): HAS NEVER RECEIVED ANESTHESIA. Past Psychological History: Anxiety, Depression Smoking Status: Never smoker Past Alcohol Use History: None Reported Past Drug Use History: None Reported - Past Family History Father Family Medical History: Unable to Obtain Additional Family Medical History / Comment(s): PT WAS ADOPTED Mother Family Medical History: Unable to Obtain Additional Family Medical History / Comment(s): ADOPTED General Exam Limitations: no limitations General appearance: alert, in no apparent distress Head exam: Present: atraumatic, normocephalic Eye exam: Present: normal appearance. Absent: scleral icterus, conjunctival injection ENT exam: Present: normal oropharynx Respiratory exam: Present: normal lung sounds bilaterally. Absent: respiratory distress, wheezes, rales, rhonchi, stridor Cardiovascular Exam: Present: regular rate, normal rhythm, normal heart sounds. Absent: systolic murmur, diastolic murmur, rubs, gallop GI/Abdominal exam: Present: soft, normal bowel sounds. Absent: distended, tenderness, guarding, rebound, organomegaly, mass Extremities exam: Present: normal inspection, normal capillary refill. Absent: pedal edema, calf tenderness Back exam: Present: normal inspection. Absent: CVA tenderness (R), CVA tenderness (L) Skin exam: Present: warm, dry, intact, normal color. Absent: rash Course Vital Signs 05/10/17 05/10/17 05/10/17 03:59 05:00 05:24 Temperature 97.8 F Pulse Rate 85 78 75 Respiratory 18 18 18 Rate Blood Pressure 123/76 121/70 107/59 O2 Sat by Pulse 100 100 98 Oximetry 05/10/17 05/10/17 05/10/17 06:00 06:38 07:12 Temperature 97.8 F Pulse Rate 64 63 71 Respiratory 18 17 18 Rate Blood Pressure 110/73 108/66 113/70 O2 Sat by Pulse 100 98 100 Oximetry Medical Decision Making - Medical Decision Making Patient's 32-year-old woman presenting with concerns of possible GI bleed. The workup reveals normal blood counts. There is occult blood in the stool. The patient's CT does not reveal an obvious source. She will follow-up with gastroenterology. Discussed return parameters. - Lab Data Result diagrams: 05/10/17 04:33 05/10/17 04:33 Lab Results 05/10/17 05/10/17 05/10/17 Range/Units 04:25 04:33 04:33 WBC 11.3 H (3.8-10.6) k/uL RBC 4.65 (3.80-5.40) m/uL Hgb 13.6 (11.4-16.0) gm/dL Hct 41.1 (34.0-46.0) % MCV 88.4 (80.0-100.0) fL MCH 29.2 (25.0-35.0) pg MCHC 33.1 (31.0-37.0) g/dL RDW 12.0 (11.5-15.5) % Plt Count 346 (150-450) k/uL Neutrophils % 70 % Lymphocytes % 19 % Monocytes % 5 % Eosinophils % 4 % Basophils % 0 % Neutrophils # 7.9 H (1.3-7.7) k/uL Lymphocytes # 2.1 (1.0-4.8) k/uL Monocytes # 0.6 (0-1.0) k/uL Eosinophils # 0.4 (0-0.7) k/uL Basophils # 0.0 (0-0.2) k/uL ESR 16 (0-20) mm/hr Sodium 143 (137-145) mmol/L Potassium 4.0 (3.5-5.1) mmol/L Chloride 106 (98-107) mmol/L Carbon Dioxide 25 (22-30) mmol/L Anion Gap 12 mmol/L BUN 14 (7-17) mg/dL Creatinine 0.80 (0.52-1.04) mg/dL Est GFR (MDRD) Af Amer >60 (>60 ml/min/1.73 sqM) Est GFR (MDRD) Non-Af >60 (>60 ml/min/1.73 sqM) Glucose 100 H (74-99) mg/dL Calcium 10.0 (8.4-10.2) mg/dL Total Bilirubin 0.4 (0.2-1.3) mg/dL AST 22 (14-36) U/L ALT 32 (9-52) U/L Alkaline Phosphatase 87 (38-126) U/L Total Protein 7.2 (6.3-8.2) g/dL Albumin 4.2 (3.5-5.0) g/dL Stool Occult Blood Positive H (Negative) Disposition Clinical Impression: Gastrointestinal bleeding Disposition: HOME SELF-CARE Condition: Good Instructions: Gastrointestinal Bleeding (ED) Prescriptions: Pantoprazole [Protonix] 40 mg PO DAILY #7 tablet.dr Referrals: Moreno Contreras III, MD [Primary Care Provider] - 1-2 days Swathi Rowan MD [STAFF PHYSICIAN] - 1-2 days
[2017-05-10] MEDS ORDERED: PANTOPRAZOLE 40 MG TABLET PO STA (06:42)
[2017-05-10 07:13] VITALS: BP 113/70; PULSE 71; RESP 18
== END 2017-05-10 07:12 | disposition home or self-care (01) ==
LOC: EC 03:57
DX: K92.2 Gastrointestinal hemorrhage, unspecified (principal); F32.9 Major depressive disorder, single episode, unspecified; Z79.899 Other long term (current) drug therapy
CPT/HCPCS: 36415; 74176; 80053; 82272; 85025; 85652; 99285

== ENCOUNTER 2017-07-23 04:41 | Observation (INO) | payer OTHER ==
[2017-07-23 05:28] LABS: Basophils % (A) 1 %; Eosinophils # (A) 0.3 k/uL (0-0.7); Eosinophils % (A) 4 %; HCT 40.2 % (34.0-46.0); HGB 13.8 gm/dL (11.4-16.0); Lymphocytes # (A) 2.1 k/uL (1.0-4.8); Lymphocytes % (A) 30 %; MCH 29.6 pg (25.0-35.0); MCHC 34.4 g/dL (31.0-37.0); MCV 86.1 fL (80.0-100.0); Mean Platelet Volume 7.4; Monocytes # (A) 0.6 k/uL (0-1.0); Monocytes % (A) 8 %; Neutrophils % (A) 55 %; Platelet Count 314 k/uL (150-450); RBC 4.67 m/uL (3.80-5.40); WBC 7.2 k/uL (3.8-10.6)
[2017-07-23] MEDS ORDERED: ASPIRIN 81 MG PO STA (05:38)
[2017-07-23] MEDS ORDERED: NITROGLYCERIN SL TABS 0.4 MG TAB SUBLINGUAL STA (05:38)
--- NOTE | 2017-07-23 05:40 | XR ---
EXAM: XR Chest, 2 Views CLINICAL HISTORY: Chest Pain TECHNIQUE: Frontal and lateral views of the chest. COMPARISON: 12/17/2016. FINDINGS: Lungs: Essentially unchanged. No consolidation. Pleural space: Unremarkable. No pneumothorax. No pleural effusions. Heart: Unremarkable. No cardiomegaly. Mediastinum: Unremarkable. Bones/joints: Unremarkable. Tubes, lines and devices: Monitor leads overlie the chest IMPRESSION: No radiographic evidence of acute cardiopulmonary process.
--- NOTE | 2017-07-23 05:40 | ED ---
General Adult HPI - General Chief complaint: Chest Pain Stated complaint: CHEST PAIN Time Seen by Provider: 07/23/17 05:01 Source: patient, RN notes reviewed Mode of arrival: wheelchair Limitations: no limitations - History of Present Illness Initial comments: Patient is a pleasant 32-year-old female presenting to the emergency department complaining of chest discomfort. Onset of symptoms was 30-45 minutes prior to arrival. Patient was at work however not exerting herself. Patient has pressure in her chest that is currently rated 6 or 7/10. Patient does feel somewhat short of breath. Symptoms do worsen with deep breaths. No associated nausea. Patient was a little bit sweaty earlier. Patient has had some similar symptoms previously however not as severe. Patient was not evaluated for this. No leg pain or leg swelling. - Related Data Home Medications Medication Instructions Recorded Confirmed Albuterol Sulfate [Proair Hfa] 2 puff INHALATION RT-QID PRN 08/03/16 07/23/17 Previous Rx's Medication Instructions Recorded Pantoprazole [Protonix] 40 mg PO DAILY #7 tablet. 05/10/17 Allergies Allergy/AdvReac Type Severity Reaction Status Date / Time No Known Allergies Allergy Verified 07/23/17 04:47 Review of Systems ROS Statement: Those systems with pertinent positive or pertinent negative responses have been documented in the HPI. ROS Other: All systems not noted in ROS Statement are negative. Constitutional: Denies: fever Eyes: Denies: eye pain ENT: Denies: ear pain Respiratory: Denies: cough Cardiovascular: Reports: chest pain Endocrine: Denies: fatigue Gastrointestinal: Denies: abdominal pain Genitourinary: Denies: dysuria Musculoskeletal: Denies: back pain Skin: Denies: rash Neurological: Denies: weakness Past Medical History Past Medical History: Asthma, GERD/Reflux Additional Past Medical History / Comment(s): HERNIATED DISCS, BACK PAIN, POLYCYSTIC OVARY SYNDROME, MIGRAINES., SEEN IN ER 11/22/16 FOR ABDOMINAL PAIN AND BLOOD IN STOOL., BIOLOGICAL SCIENCE TECHNICIAN TOLD HER SHE HAD A "SMALL FLAP AT HER VENTRICLE", History of Any Multi-Drug Resistant Organisms: None Reported Past Surgical History: No Surgical Hx Reported Additional Past Surgical History / Comment(s): COLD KNIFE CONIZATION, [facility], Past Anesthesia/Blood Transfusion Reactions: No Reported Reaction, Motion Sickness Additional Past Anesthesia/Blood Transfusion Reaction / Comment(s): HAS NEVER RECEIVED ANESTHESIA. Past Psychological History: Anxiety, Depression Smoking Status: Never smoker Past Alcohol Use History: None Reported Past Drug Use History: None Reported - Past Family History Father Family Medical History: Unable to Obtain Additional Family Medical History / Comment(s): PT WAS ADOPTED Mother Family Medical History: Unable to Obtain Additional Family Medical History / Comment(s): ADOPTED General Exam Limitations: no limitations General appearance: alert, in no apparent distress Head exam: Present: atraumatic Eye exam: Present: normal appearance, PERRL ENT exam: Present: normal oropharynx Neck exam: Present: normal inspection Respiratory exam: Present: normal lung sounds bilaterally, chest wall tenderness Cardiovascular Exam: Present: regular rate, normal rhythm Expanded Peripheral pulses: 2+: Radial (R), Radial (L), Dorsalis Pedis (R), Dorsalis Pedis (L) GI/Abdominal exam: Present: soft. Absent: tenderness Extremities exam: Present: normal inspection. Absent: pedal edema, calf tenderness Neurological exam: Present: alert Psychiatric exam: Present: normal affect, normal mood Skin exam: Present: normal color Course Vital Signs 07/23/17 07/23/17 07/23/17 04:43 05:47 05:55 Temperature 98.6 F Pulse Rate 63 62 70 Respiratory 18 18 18 Rate Blood Pressure 126/81 114/73 104/66 O2 Sat by Pulse 98 100 100 Oximetry 07/23/17 07/23/17 06:07 06:22 Temperature Pulse Rate 56 L 61 Respiratory 16 18 Rate Blood Pressure 107/69 110/76 O2 Sat by Pulse 100 100 Oximetry EKG Findings - EKG Comments: EKG Findings:: Normal sinus rhythm 64. W[place] 140. QRS 70. QT 414. QTC 427. Normal axis. Normal QRS. No acute ST change. Medical Decision Making - Medical Decision Making Patient reevaluated and resting comfortably in bed. Patient states she did get some improvement with nitroglycerin. Case was discussed with practitioner Veena haro, who will admit for Dr. Whitfield. He is covering for Dr. Contreras. - Lab Data Result diagrams: 07/23/17 04:50 07/23/17 04:50 Lab Results 07/23/17 07/23/17 07/23/17 Range/Units 04:50 04:50 04:50 WBC 7.2 (3.8-10.6) k/uL RBC 4.67 (3.80-5.40) m/uL Hgb 13.8 (11.4-16.0) gm/dL Hct 40.2 (34.0-46.0) % MCV 86.1 (80.0-100.0) fL MCH 29.6 (25.0-35.0) pg MCHC 34.4 (31.0-37.0) g/dL RDW 12.0 (11.5-15.5) % Plt Count 314 (150-450) k/uL Neutrophils % 55 % Lymphocytes % 30 % Monocytes % 8 % Eosinophils % 4 % Basophils % 1 % Neutrophils # 4.0 (1.3-7.7) k/uL Lymphocytes # 2.1 (1.0-4.8) k/uL Monocytes # 0.6 (0-1.0) k/uL Eosinophils # 0.3 (0-0.7) k/uL Basophils # 0.0 (0-0.2) k/uL PT (9.0-12.0) sec INR (<1.2) APTT (22.0-30.0) sec D-Dimer (<0.60) mg/L FEU Sodium 142 (137-145) mmol/L Potassium 4.3 (3.5-5.1) mmol/L Chloride 104 (98-107) mmol/L Carbon Dioxide 25 (22-30) mmol/L Anion Gap 13 mmol/L BUN 11 (7-17) mg/dL Creatinine 0.80 (0.52-1.04) mg/dL Est GFR (CKD-EPI)AfAm >90 (>60 ml/min/1.73 sqM) Est GFR (CKD-EPI)NonAf >90 (>60 ml/min/1.73 sqM) Glucose 93 (74-99) mg/dL Calcium 9.9 (8.4-10.2) mg/dL Magnesium 2.0 (1.6-2.3) mg/dL Total Bilirubin 0.4 (0.2-1.3) mg/dL AST 27 (14-36) U/L ALT 28 (9-52) U/L Alkaline Phosphatase 91 (38-126) U/L Total Creatine Kinase 90 (30-135) U/L CK-MB (CK-2) 0.7 (0.0-2.4) ng/mL CK-MB (CK-2) Rel Index 0.8 Troponin I <0.012 (0.000-0.034) ng/mL Total Protein 7.6 (6.3-8.2) g/dL Albumin 4.5 (3.5-5.0) g/dL Urine HCG, Qual (Not Detectd) 07/23/17 07/23/17 07/23/17 Range/Units 04:50 04:50 05:03 WBC (3.8-10.6) k/uL RBC (3.80-5.40) m/uL Hgb (11.4-16.0) gm/dL Hct (34.0-46.0) % MCV (80.0-100.0) fL MCH (25.0-35.0) pg MCHC (31.0-37.0) g/dL RDW (11.5-15.5) % Plt Count (150-450) k/uL Neutrophils % % Lymphocytes % % Monocytes % % Eosinophils % % Basophils % % Neutrophils # (1.3-7.7) k/uL Lymphocytes # (1.0-4.8) k/uL Monocytes # (0-1.0) k/uL Eosinophils # (0-0.7) k/uL Basophils # (0-0.2) k/uL PT 9.7 (9.0-12.0) sec INR 1.0 (<1.2) APTT 25.6 (22.0-30.0) sec D-Dimer 0.29 (<0.60) mg/L FEU Sodium (137-145) mmol/L Potassium (3.5-5.1) mmol/L Chloride (98-107) mmol/L Carbon Dioxide (22-30) mmol/L Anion Gap mmol/L BUN (7-17) mg/dL Creatinine (0.52-1.04) mg/dL Est GFR (CKD-EPI)AfAm (>60 ml/min/1.73 sqM) Est GFR (CKD-EPI)NonAf (>60 ml/min/1.73 sqM) Glucose (74-99) mg/dL Calcium (8.4-10.2) mg/dL Magnesium (1.6-2.3) mg/dL Total Bilirubin (0.2-1.3) mg/dL AST (14-36) U/L ALT (9-52) U/L Alkaline Phosphatase (38-126) U/L Total Creatine Kinase (30-135) U/L CK-MB (CK-2) (0.0-2.4) ng/mL CK-MB (CK-2) Rel Index Troponin I (0.000-0.034) ng/mL Total Protein (6.3-8.2) g/dL Albumin (3.5-5.0) g/dL Urine HCG, Qual Not Detected (Not Detectd) - Radiology Data Radiology results: image reviewed (Chest x-ray shows no acute process) Disposition Clinical Impression: Chest pain Disposition: ADMITTED IP TO THIS [facility] Referrals: Moreno Contreras III, MD [Primary Care Provider] - 1-2 days Decision Time: 06:36
[2017-07-23 05:42] LABS: ALT 28 U/L (9-52); AST 27 U/L (14-36); Albumin 4.5 g/dL (3.5-5.0); Alkaline Phosphatase 91 U/L (38-126); Anion Gap 13 mmol/L; Blood Urea Nitrogen 11 mg/dL (7-17); Calcium 9.9 mg/dL (8.4-10.2); Carbon Dioxide 25 mmol/L (22-30); Chloride 104 mmol/L (98-107); Glucose 93 mg/dL (74-99); Potassium 4.3 mmol/L (3.5-5.1); Sodium 142 mmol/L (137-145); Total Bilirubin 0.4 mg/dL (0.2-1.3); Total Protein 7.6 g/dL (6.3-8.2)
[2017-07-23 05:44] LABS: Partial Thromboplastin Time 25.6 sec (22.0-30.0); Prothrombin Time 9.7 sec (9.0-12.0)
[2017-07-23 05:47] LABS: Creatine Kinase 90 U/L (30-135)
[2017-07-23 06:00] LABS: Creatine Kinase MB 0.7 ng/mL (0.0-2.4); Troponin I <0.012 ng/mL (0.000-0.034)
[2017-07-23] MEDS ORDERED: NITROGLYCERIN OINT 1 INCH/GM PACKET TOPICAL STA (06:23)
[2017-07-23] MEDS ORDERED: NITROGLYCERIN SL TABS 0.4 MG TAB SUBLINGUAL PRN (06:36)
[2017-07-23 07:06] VITALS: RESP 16
[2017-07-23 10:43] VITALS: BP 108/66; PULSE 64; TEMP 97.7
[2017-07-23 11:01] LABS: Creatine Kinase 71 U/L (30-135)
[2017-07-23 11:14] LABS: Creatine Kinase MB 0.5 ng/mL (0.0-2.4); Troponin I <0.012 ng/mL (0.000-0.034)
[2017-07-23] MEDS ORDERED: NITROGLYCERIN OINT 1 INCH/GM PACKET TOPICAL SCH (12:00)
--- NOTE | 2017-07-23 12:22 | P.CRDCN ---
History of Present Illness Consult date: 07/23/17 Consult reason: chest pain History of present illness: Mrs. Freeman is a pleasant 32-year-old female past medical history significant for asthma and gastroesophageal reflux disease. She denies history of coronary artery disease. We have been asked to see her in consultation for complaints of chest pain. She states yesterday while she was at work she was sitting down on her break when she started feeling a sharp chest located in the upper midsternal region that radiated over to the precordial region. 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 The pain continued so she decided to present to ED. The pain persisted in the ED for approximately 2 hours per the patient and resolved after nitroglycerin. At the time of my exam she is seen sitting in bed in no acute distress with a nitropatch on. She states her pain has subsided but when I was asking her to take a deep breath the pain was coming back. She denies symptoms of palpitations, nausea, vomiting or diaphoresis. EKG on arrival reveals sinus mechanism with no acute ST or T-wave abnormalities. Chest xray is negative for an acute cardiopulmonary process. Laboratory data reviewed, d-dimer 0.29, potassium 4.3, sodium 142, magnesium 2.0 , creatinine 0.8, cardiac enzymes negative 1. Most recent stress test 12/2016 revealed average exercise capacity, no EKG evidence of ischemia. Most recent echocardiogram 12/2016 reveals preserved LV systolic function with EF 55%. mild TR and mild OK. Review of Systems At the time of my exam: CONSTITUTIONAL: Denies fever. Denies chills. EYES: Denies blurred vision. Denies vision changes. Denies eye pain. EARS, NOSE, MOUTH & THROAT: Denies headache. Denies sore throat. Denies ear pain. CARDIOVASCULAR: Complains of pleuritic chest pain. Denies shortness of breath. Denies orthopnea. Denies PND. Denies palpitations. RESPIRATORY: Denies cough. GASTROINTESTINAL: Denies abdominal pain. Denies diarrhea. Denies constipation. Denies nausea. Denies vomiting. MUSCULOSKELETAL: Denies myalgias. INTEGUMENTARY: Denies pruitis. Denies rash. NEUROLOGIC: Denies numbness. Denies tingling. Denies weakness. PSYCHIATRIC: Denies anxiety. Denies depression. ENDOCRINE: Denies fatigue. Denies weight change. Denies polydipsia. Denies polyurina. GENITOURINARY: Denies burning, hematuria or urgency with micturation. HEMATOLOGIC: Denies history of anemia. Denies bleeding. Past Medical History Past Medical History: Asthma, GERD/Reflux Additional Past Medical History / Comment(s): HERNIATED DISCS, BACK PAIN, POLYCYSTIC OVARY SYNDROME, MIGRAINES., SEEN IN ER 11/22/16 FOR ABDOMINAL PAIN AND BLOOD IN STOOL., [employer] TOLD HER SHE HAD A "SMALL FLAP AT HER VENTRICLE", History of Any Multi-Drug Resistant Organisms: None Reported Past Surgical History: No Surgical Hx Reported Additional Past Surgical History / Comment(s): COLD KNIFE CONIZATION, [facility], Past Anesthesia/Blood Transfusion Reactions: No Reported Reaction, Motion Sickness Additional Past Anesthesia/Blood Transfusion Reaction / Comment(s): HAS NEVER RECEIVED ANESTHESIA. Past Psychological History: Anxiety, Depression Smoking Status: Never smoker Past Alcohol Use History: None Reported Past Drug Use History: None Reported - Past Family History Father Family Medical History: Unable to Obtain Additional Family Medical History / Comment(s): PT WAS ADOPTED Mother Family Medical History: Unable to Obtain Additional Family Medical History / Comment(s): ADOPTED Medications and Allergies Home Medications Medication Instructions Recorded Confirmed Type Albuterol Sulfate [Proair Hfa] 2 puff INHALATION RT-QID PRN 08/03/16 07/23/17 History Pantoprazole [Protonix] 40 mg PO DAILY #7 tablet. 05/10/17 07/23/17 Rx Allergies Allergy/AdvReac Type Severity Reaction Status Date / Time No Known Allergies Allergy Verified 07/23/17 08:03 Physical Exam Vitals: Vital Signs Temp Pulse Resp BP Pulse Ox 07/23/17 09:32 62 16 107/69 100 07/23/17 08:00 72 16 118/72 100 07/23/17 07:05 68 16 111/71 100 07/23/17 06:22 61 18 110/76 100 07/23/17 06:07 56 L 16 107/69 100 07/23/17 05:55 70 18 104/66 100 07/23/17 05:47 62 18 114/73 100 07/23/17 04:43 98.6 F 63 18 126/81 98 Intake and Output 07/22/17 07/23/17 07/23/17 22:59 06:59 14:59 Other: Weight 77.111 kg Blood pressure 107/69 heart rate 62 afebrile maintaining oxygen saturation on nasal cannula. GENERAL: This is a 32-year-old female in no apparent distress at the time of my examination. Obese. HEENT: Head is atraumatic, normocephalic. Pupils are equal, round. Sclerae anicteric. Conjunctivae are clear. Mucous membranes of the mouth are moist. Neck is supple. There is no jugular venous distention. No carotid bruit is heard. LUNGS: Clear to auscultation no wheezes, rales or rhonchi. No chest wall tenderness is noted on palpation or with deep breathing. HEART: Regular rate and rhythm without murmurs, rubs or gallops. S1 and S2 heard. ABDOMEN: Soft, nontender. Bowel sounds are heard. No organomegaly noted. EXTREMITIES: No evidence of peripheral edema and no calf tenderness noted. VASCULAR: Radial and dorsalis pedis pulses palpated, no evidence of clubbing. NEUROLOGIC: Patient is awake, alert and oriented x3. Results 07/23/17 04:50 07/23/17 04:50 Cardiac Enzymes 07/23/17 07/23/17 Range/Units 04:50 04:50 AST 27 (14-36) U/L CK-MB (CK-2) 0.7 (0.0-2.4) ng/mL Troponin I <0.012 (0.000-0.034) ng/mL Coagulation 07/23/17 Range/Units 04:50 PT 9.7 (9.0-12.0) sec APTT 25.6 (22.0-30.0) sec CBC 07/23/17 Range/Units 04:50 WBC 7.2 (3.8-10.6) k/uL RBC 4.67 (3.80-5.40) m/uL Hgb 13.8 (11.4-16.0) gm/dL Hct 40.2 (34.0-46.0) % Plt Count 314 (150-450) k/uL Comprehensive Metabolic Panel 07/23/17 Range/Units 04:50 Sodium 142 (137-145) mmol/L Potassium 4.3 (3.5-5.1) mmol/L Chloride 104 (98-107) mmol/L Carbon Dioxide 25 (22-30) mmol/L BUN 11 (7-17) mg/dL Creatinine 0.80 (0.52-1.04) mg/dL Glucose 93 (74-99) mg/dL Calcium 9.9 (8.4-10.2) mg/dL AST 27 (14-36) U/L ALT 28 (9-52) U/L Alkaline Phosphatase 91 (38-126) U/L Total Protein 7.6 (6.3-8.2) g/dL Albumin 4.5 (3.5-5.0) g/dL Current Medications Generic Name Dose Route Start Last Admin Trade Name Freq PRN Reason Stop Dose Admin Aspirin 325 mg 07/24/17 09:00 Aspirin PO DAILY ROSHAN Nitroglycerin 1 inch 07/23/17 12:00 Nitro-Bid Oint TOPICAL Q6HR ROSHAN Nitroglycerin 0.4 mg 07/23/17 06:36 Nitrostat SUBLINGUAL Q5M PRN Chest Pain Sodium Chloride 10 ml 07/23/17 09:00 Saline Flush IV BID ROSHAN Intake and Output 07/22/17 07/23/17 07/23/17 22:59 06:59 14:59 Other: Weight 77.111 kg 07/23/17 04:50 07/23/17 04:50 Assessment and Plan Assessment: ASSESSMENT 1. Pleuritic chest pain 2. Asthma 3. Obesity, BMI 32.1 PLAN Discontinue nitropaste and oxygen. Increase activity and ambulate in the halls. If second troponin is negative she is stable from a cardiac perspective. Follow-up with Dr. Nguyen in 2-3 weeks. Thank you kindly for this consultation. Nurse Practitioner note has been reviewed, I agree with a documented findings and plan of care. Patient was seen and examined.
--- NOTE | 2017-07-23 15:08 | P.HPIM ---
History of Present Illness 32-year-old female past medical history significant for asthma and gastroesophageal reflux disease. She denies history of coronary artery disease. We have been asked to see her in consultation for complaints of chest pain. She states yesterday while she was at work she was sitting down on her break when she started feeling a sharp chest located in the upper midsternal region that radiated over to the precordial region. 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 The pain continued so she decided to present to ED. The pain persisted in the ED for approximately 2 hours per the patient and resolved after nitroglycerin. At the time of my exam she is seen sitting in bed in no acute distress with a nitropatch on. She states her pain has subsided but when I was asking her to take a deep breath the pain was coming back. She denies symptoms of palpitations , nausea, vomiting or diaphoresis. Patient was evaluated by cardiology patient had a recent stress test which was negative about 6 months ago and patient just pain is noncardiac ruled out acute coronary syndromes patient is cleared for discharge from cardiology perspective. Patient d-dimer is negative patient has some pleuritic chest pain. Which is probably musculoskeletal related patient doesn't have any pneumonia. Patient is already on Protonix for gastric dysphagia and reflux disease. Review of Systems REVIEW OF SYSTEMS: CONSTITUTIONAL: No fever, no malaise, no fatigue. HEENT: No recent visual problems or hearing problems. Denied any sore throat. CARDIOVASCULAR: No orthopnea, PND, no palpitations, no syncope. PULMONARY: No shortness of breath, no cough, no hemoptysis. GASTROINTESTINAL: No diarrhea, no nausea, no vomiting, no abdominal pain. Normoactive bowel sounds. NEUROLOGICAL: No headaches, no weakness, no numbness. HEMATOLOGICAL: Denies any bleeding or petechiae. GENITOURINARY: Denies any burning micturition, frequency, or urgency. MUSCULOSKELETAL/RHEUMATOLOGICAL: Denies any joint pain, swelling, or any muscle pain. ENDOCRINE: Denies any polyuria or polydipsia. The rest of the 14-point review of systems is negative. Past Medical History Past Medical History: Asthma, GERD/Reflux Additional Past Medical History / Comment(s): HERNIATED DISCS, BACK PAIN, POLYCYSTIC OVARY SYNDROME, MIGRAINES., SEEN IN ER 11/22/16 FOR ABDOMINAL PAIN AND BLOOD IN STOOL., [employer] TOLD HER SHE HAD A "SMALL FLAP AT HER VENTRICLE", History of Any Multi-Drug Resistant Organisms: None Reported Past Surgical History: No Surgical Hx Reported Additional Past Surgical History / Comment(s): COLD KNIFE CONIZATION, [facility], Past Anesthesia/Blood Transfusion Reactions: No Reported Reaction, Motion Sickness Additional Past Anesthesia/Blood Transfusion Reaction / Comment(s): HAS NEVER RECEIVED ANESTHESIA. Past Psychological History: Anxiety, Depression Smoking Status: Never smoker Past Alcohol Use History: None Reported Past Drug Use History: None Reported - Past Family History Father Family Medical History: Unable to Obtain Additional Family Medical History / Comment(s): PT WAS ADOPTED Mother Family Medical History: Unable to Obtain Additional Family Medical History / Comment(s): ADOPTED Medications and Allergies Home Medications Medication Instructions Recorded Confirmed Type Albuterol Sulfate [Proair Hfa] 2 puff INHALATION RT-QID PRN 08/03/16 07/23/17 History Pantoprazole [Protonix] 40 mg PO DAILY #7 tablet. 05/10/17 07/23/17 Rx Allergies Allergy/AdvReac Type Severity Reaction Status Date / Time No Known Allergies Allergy Verified 07/23/17 08:03 Physical Exam Vitals: Vital Signs Temp Pulse Pulse Resp BP BP Pulse Ox 07/23/17 10:41 97.7 F 64 16 108/66 100 07/23/17 09:32 62 16 107/69 100 07/23/17 08:00 72 16 118/72 100 07/23/17 07:05 68 16 111/71 100 07/23/17 06:22 61 18 110/76 100 07/23/17 06:07 56 L 16 107/69 100 07/23/17 05:55 70 18 104/66 100 07/23/17 05:47 62 18 114/73 100 07/23/17 04:43 98.6 F 63 18 126/81 98 Intake and Output 07/23/17 07/23/17 07/23/17 06:59 14:59 22:59 Intake Total 240 Balance 240 Intake: Oral 240 Other: # Voids 1 Weight 77.111 kg 76.2 kg PHYSICAL EXAMINATION: GENERAL: The patient is alert and oriented x3, not in any acute distress. Well developed, well nourished. HEENT: Pupils are round and equally reacting to light. EOMI. No scleral icterus. No conjunctival pallor. Normocephalic, atraumatic. No pharyngeal erythema. No thyromegaly. CARDIOVASCULAR: S1 and S2 present. No murmurs, rubs, or gallops. PULMONARY: Chest is clear to auscultation, no wheezing or crackles. ABDOMEN: Soft, nontender, nondistended, normoactive bowel sounds. No palpable organomegaly. MUSCULOSKELETAL: No joint swelling or deformity. EXTREMITIES: No cyanosis, clubbing, or pedal edema. NEUROLOGICAL: Gross neurological examination did not reveal any focal deficits. SKIN: No rashes. Results CBC & Chem 7: 07/23/17 04:50 07/23/17 04:50 Thrombosis Risk Factor Assmnt - Choose All That Apply Any of the Below Risk Factors Present?: Yes Each Factor Represents 1 point: Obesity (BMI >25) Other Risk Factors: No Other congenital or acquired thrombophilia - If yes, enter type in comment: No Thrombosis Risk Factor Assessment Total Risk Factor Score: 1 Thrombosis Risk Factor Assessment Level: Low Risk Assessment and Plan Plan: -Chest pain: Rule out acute medicine syndromes and patient will be discharged today patient chest pain is probably muscular skeletal nature. -Asthma without any acute exacerbation -gastroesophageal reflux disease for which patient on Protonix which will be continued
--- NOTE | 2017-07-23 15:09 | P.DS ---
Providers Date of admission: 07/23/17 06:36 Attending physician: Bridget Whitfield Consults: 07/23/17 06:36 Consult Physician Urgent Consulting Provider: Lucero Madden Consult Reason/Comments: cp Do you want consulting provider notified?: Yes Primary care physician: Moreno Contreras Va Hospital Course: As mentioned in HPI Plan - Discharge Summary Discharge Rx Participant: No New Discharge Prescriptions: No Action Albuterol Sulfate [Proair Hfa] 2 puff INHALATION RT-QID PRN PRN Reason: Shortness Of Breath Pantoprazole [Protonix] 40 mg PO DAILY #7 tablet. Discharge Medication List Albuterol Sulfate [Proair Hfa] 2 puff INHALATION RT-QID PRN 08/03/16 [History] Pantoprazole [Protonix] 40 mg PO DAILY #7 tablet. 05/10/17 [Rx] Follow up Appointment(s)/Referral(s): Moreno Contreras III, MD [Primary Care Provider] - 1-2 days
[2017-07-24] MEDS ORDERED: ASPIRIN 325 MG TAB PO SCH (09:00)
== END 2017-07-23 15:50 | disposition home or self-care (01) ==
LOC: EC 04:41 → 3OBS 06:36
PROVIDERS: ADMIT Hospitalist; ATTEND Hospitalist
DX: R07.89 Other chest pain (principal); R42 Dizziness and giddiness; J45.909 Unspecified asthma, uncomplicated; K21.9 Gastro-esophageal reflux disease without esophagitis; E66.9 Obesity, unspecified; Z68.32 Body mass index [BMI] 32.0-32.9, adult; F41.9 Anxiety disorder, unspecified; F32.9 Major depressive disorder, single episode, unspecified; E28.2 Polycystic ovarian syndrome; M54.9 Dorsalgia, unspecified; G43.909 Migraine, unspecified, not intractable, without status migrainosus; Z79.899 Other long term (current) drug therapy
CPT/HCPCS: 99285 ×2; 36415; 93005; 85379; 80053; 82550; 82553; 83735; 84484; 85025; 85610; 85730; 81025; 71046; G0378

== ENCOUNTER → 2017-07-24 | Outpatient (CLI) | payer OTHER ==
[2017-07-24 12:43] VITALS: BP 114/79; PULSE 63; RESP 18
--- NOTE | 2017-07-24 12:50 | P.PN ---
Progress Note - Text Progress Note Date: 07/24/17 Patient returns for followup for chronic headache pain, referred by Dr. Combs for occipital nerve blocks. Patient continues on Imitrex medications for pain with some relief. Patient denies adverse drug effects from medications. Today , pt denies new-onset weakness, bowel/bladder incontinence, or any other signs or symptoms of cauda equina syndrome. There are no signs of acute intoxication, and no indications of medication diversion or overuse. In addition to above, 13-point review of systems is also negative for chest pain , shortness of breath, changes in vision, changes in hearing, new onset weakness , abdominal pain, diarrhea, extreme fatigue, malaise, fever, skin changes, homicidal or suicidal ideation, or bowel or bladder incontinence. Vital Signs: Reviewed in EMR Gen: WDWN, AAOx3, NAD HEENT: NCAT, EOMI, hearing grossly normal, tenderness over bilateral occipital ridges Pulm: resp unlabored Abd: soft, NT, ND Neck: supple, trachea midline Neuro: CN II-XII grossly intact, muscle strength lower extremities PRESERVED Imaging: Reviewed in EMR Assessment: 1. occipital neuralgia 2. chronic pain syndrome Plan: 1. Explanation: Opioid and psychological risk scores were reviewed. Diagnoses , prognoses, and multiple treatment options including but not limited to physical therapy, interventional therapies, adjuvant medical therapies, narcotic medication therapies, and surgery were discussed with the patient and all questions were answered to the patient's satisfaction. 2. Opioid agreement: no opioids prescribed today 3. Counseling: The patient was counseled extensively on BODY MASS INDEX, EXERCISE. Specifically, the patient was instructed regarding the importance of weight control, and exercise in the context of both chronic pain and overall health. 4. Procedures: bilateral occipital nerve block 5. Consultations: None 6. Investigations: None 7. Medications: none prescribed 8. Disposition: f/u for procedure as scheduled PQRS measures: 1-Patient's medications are documented in the chart. 2-Tobacco use is negative 3-Patient has not had a pneumococcal vaccine. 4-Advanced care planning discussed, patient unable to give. 5-Opioid contract NOT signed with the patient. 6-Pain positive, follow-up visit or procedure scheduled 7-Patient's blood pressure measured and documented, and WNL. 8-Patient's weight was measured, and body mass index ABOVE the normal limits, and counseling was done. Patient instructed to follow up with PCP. 9-Patient WAS NOT identified as an unhealthy alcohol user.
== END | disposition home or self-care (01) ==
LOC: PNWHC3 12:31
PROVIDERS: ATTEND Anesthesiology
DX: G89.4 Chronic pain syndrome (principal); M54.81 Occipital neuralgia
CPT/HCPCS: 99211

== ENCOUNTER 2017-08-12 06:06 | Day surgery (SDC) | payer OTHER ==
[2017-08-06 10:33] VITALS: BMI 32.5
[2017-08-12 06:23] VITALS: TEMP 98
[2017-08-12] MEDS ORDERED: LACTATED RINGERS 1,000 ML IV ONE (06:24)
[2017-08-12] MEDS ORDERED: LIDOCAINE 1% 20 ML VIAL (10MG/ML) FOR IV START INTRADERMA ONE (06:26)
[2017-08-12] MEDS ORDERED: LACTATED RINGERS 1,000 ML IV SCH (07:30)
--- NOTE | 2017-08-12 07:36 | P.PCN ---
Date of Procedure: 08/12/17 Surgeon: Rubio Mancilla Pathology: none sent Condition: stable Disposition: PACU Description of Procedure: PREOPERATIVE DIAGNOSIS: 1-occipital neuralgia POSTOPERATIVE DIAGNOSIS:. 1-occipital neuralgia PROCEDURE: Bilateral occipital nerve block ANESTHESIA: Conscious sedation with Versed. EBL: Minimal PROCEDURE INDICATION: The patient with neck pain and headache secondary to bilateral occipital neuralgia and has failed conservative management. No use of blood thinners. PROCEDURE DESCRIPTION / TECHNIQUE: The patient was seen and identified in the preoperative area. Risks, benefits, complications, and alternatives were discussed with the patient (including but not limited to incomplete pain relief , bleeding, infection, nerve damage, and allergies to medications), the patient agreed to proceed with the procedure and signed the consent after all questions were answered. Patient was taken to the OR and time out was completed to verify proper patient , position, laterality of pain, and allergies. Pt was placed in the sitting position. IV was started. Vital signs remained stable throughout the procedure. Conscious sedation was used during the procedure to decrease patients anxiety. The cervical area and bilateral occipital areas were prepped in the usual sterile fashion. Critical pause was taken. After localization with 1% lidocaine, the right occipital ridge was palpated and was then accessed with a 25G needle. Then after negative aspiration, 3 ml of the total 6 ml block solution containing 5 ml of PF Bupivacaine 0.5% and Kenalog 40 mg was injected. Needle was withdrawn intact. The entire procedure was then repeated on the left side exactly as above. Needle was withdrawn intact and there were no acute complications. DISPOSITION / PLANS: The patient was placed in a supine position and transferred to the recovery area in a stable condition for observation and was discharged from the recovery room after meeting discharge criteria. Home discharge instructions given to the patient by the staff. The patient was reexamined prior to discharge. The patient will schedule a repeat injection in approximately 2-4 weeks.
[2017-08-12 07:57] VITALS: BP 101/64; PULSE 70; RESP 20
[2017-08-12] MEDS ORDERED: IV FLUID CONTINUATION 1,000 ML IV ONE (07:57)
== END 2017-08-12 08:03 | disposition home or self-care (01) ==
LOC: ORPAIN 06:06
PROVIDERS: ATTEND Anesthesiology
DX: M54.81 Occipital neuralgia (principal); G89.4 Chronic pain syndrome; J45.909 Unspecified asthma, uncomplicated; G43.909 Migraine, unspecified, not intractable, without status migrainosus; F41.9 Anxiety disorder, unspecified; F32.9 Major depressive disorder, single episode, unspecified; Z79.899 Other long term (current) drug therapy
CPT/HCPCS: 81025; 64405; J2250; J3301; J2001

== ENCOUNTER → 2017-08-22 | Outpatient (CLI) | payer SELFPAY ==
--- NOTE | 2017-08-22 11:36 | XR ---
EXAMINATION TYPE: XR cervical spine limited DATE OF EXAM: 08/22/2017 COMPARISON: NONE HISTORY: Pain TECHNIQUE: 3 views are submitted. FINDINGS: The odontoid is intact. There are no compression deformities. The prevertebral soft tissue structur es are within normal limits. There is loss the normal cervical lordosis. 1 to 2 mm anterolisthesis o f C2 on C3 and C3 on C4. Posterior laminar line appears to be intact. Could potentially be related to ligamentous laxity. IMPRESSION: 1. There is a kyphosis of the cervical spine with loss of the normal cervical lordosis. Recommend fol low-up MRI.
== END | disposition home or self-care (01) ==
LOC: RADXRMAIN 10:35
PROVIDERS: ATTEND Psychiatry & Neurology Neurology
DX: M40.292 Other kyphosis, cervical region (principal)
CPT/HCPCS: 72040